=== PATIENT | female | born 1960 | race Caucasian/White ===

== ENCOUNTER 2021-06-05 15:22 | Emergency (ER) | payer OTHER, SELFPAY ==
[2021-06-05 15:38] VITALS: BP 126/72; PULSE 106; RESP 18; TEMP 37.8; O2SAT 97; BMI 25.6
--- NOTE | 2021-06-05 19:19 | ED_ITS ---
HPI - General Adult General Chief complaint: Abdominal Pain Stated complaint: headache, fever, body weakness Time Seen by Provider: 06/05/21 19:19 Source: patient Mode of arrival: ambulatory Limitations: language barrier (Hungarian speaking) History of Present Illness HPI narrative: 60-year-old female past medical history significant for anxiety, and asthma presents to the emergency department with body aches, fevers, abdominal pain, nausea, diarrhea, LAZCANO and weakness X2 days progressively worsening. She states that the body aches came on all the sudden yesterday. T max at home was 102. She states that she is having abdominal pain in all 4 quadrants, nothing makes it better or worse. She states she has felt nauseous for the past 2 days, however has not vomited. She reports 10 episodes of diarrhea per day, brown in color, free of blood. She also reports frontal headache that is bilateral in nature, with no changes in vision, she states it feels like a typical migraine, except a little stronger. Patient denies chest pain,SOB, cough, changes in urination, paresthesias, numbness, tingling, back pain, vomiting. She has been taking ibuprofen. Related Data Previous Rx's Medication Instructions Recorded famotidine 20 mg tablet 20 mg PO DAILY #10 tab 06/05/21 ondansetron 4 mg disintegrating 4 mg PO BEDTIME #7 tab 06/05/21 tablet Allergies Allergy/AdvReac Type Severity Reaction Status Date / Time No Known Allergies Allergy Verified 06/05/21 15:38 Review of Systems Review of Systems: Yes all other systems are reviewed and are negative PMFSH Past Medical History Attestation statement: The following information was validated with the patient. Source: old records reviewed and nursing notes reviewed Medical History Anxiety Asthma Social History Social History Alcohol intake: never Patient Tobacco Use Status: Never used Tobacco Use of substances other than those prescribed or required for medical reasons: No Advance Directives: No Advance Directives Information Provided: No Patient : No Physical Exam Vital Signs: Vital Signs: Last Vital Signs Temp 99.0 F 06/05/21 20:58 Pulse 87 06/05/21 20:58 Resp 18 10/19/21 20:58 BP 143/70 H 06/05/21 20:58 Pulse Ox 95 06/05/21 20:58 Body Mass Index 25.6 Const: General: cooperative and no acute distress Orientation/co nsciousness: oriented to person and oriented to place Limitations: no limitations HENMT: Head: Yes normal to inspection, Yes normocephalic and Yes atraumatic Ears: external ears normal General nose exam: Normal external nose present Face and sinus: Yes normal facial exam Mouth: Normal oral and palatal mucosa present Throat: Yes posterior oropharynx normal Eyes: General: appearance normal, both eyes and all related structures Pupils: Equal, round and reactive pupils present Neck: Neck: Yes normal visual inspection, Yes no lymphadenopathy, Yes trachea midline and Yes supple Chest: Chest palpation & inspection: normal inspection of the chest and normal palpation of entire chest wall Resp: Effort & Inspection: normal respiratory effort and able to speak in complete sentences Auscultation: clear to auscultation bilaterally Cardio: Rate: regular rate Rhythm: regular rhythm Heart sounds: S1 normal heart sound present, S2 normal heart sound present and no murmurs GI: Inspection: Yes normal to inspection Palpation (GI): Soft to palpation, nontender and no guarding Auscultation: normal bowel sounds : General: Yes no CVA tenderness Back/Spine/Pelvis: Back: no CVA tenderness Skin: General skin exam: no rashes or lesions noted Neuro: General: oriented to person and oriented to place Cranial nerves: Yes CN's II-XII intact bilaterally and Yes Equal, round and reactive pupils present Cognition (Neuro): normal cognition Motor exam (neuro): 5/5 motor strength present throughout Coordination: [id number] test normal, zrxx-cq-mapj test normal and tandem gait normal Extrem: General: Yes normal to inspection Psych: Appearance: grossly normal Speech and movement: Normal speech and movement present Affect: normal affect Attitude: cooperative Thought process: Normal thought process present Thought content: Normal thought content present Course Course Course Narrative: 1927 60-year-old female past medical history significant for anxiety, and asthma presents to the emergency department with body aches, fevers (oral T max 102.0F), generalized abdominal pain, nausea, diarrhea about 10 episodes of liquid brown stool, frontal LAZCANO described as tightness bilaterally and weakness X2 days progressively worsening. Denies recent antibiotic use, and travel. On physical examination lungs are clear. Abdomen soft nontender nondistended. Patient has 5/5 strength upper and lower extremities. Normal zxciwq-ur-hcoj, zgsq-by-kfyf, hand glass smoother. No meningeal signs, negative Babinski, negative Kernig. Patient is alert and oriented x3 Unlikely that this is meningitis. Reevaluation(s) Reevaluation #1: Upon re-evaluation, patient is feeling much better after taking Imitrex, Zofran and Pepcid. She is comfortably resting on the stretcher. Time: 20:43 Reevaluation #2: Upon re-evaluation, patient says that these medications really helped. She has not had any episodes of diarrhea while in the emergency department. Her abdominal pain has resolved. She is no longer nauseous. Her headache is significantly better at this time. She states that tomorrow she will call and try to follow-up with her primary care provider. She is safe for discharge home, with prompt PCP follow-up. She has been educated to return to the emergency department with new or worsening symptoms. Time: 21:44 Medical Decision Making MDM Narrative Medical decision making narrative: Based off of patient's history, physical exam basic labs will be ordered, UA, EKG, flu/COVID/RSV. She will be given Imitrex for headache, and fluids for hydration. Lab Data Result diagrams: 06/05/21 19:44 06/05/21 20:25 Labs: Lab Results 06/05/21 06/05/21 06/05/21 Range/Units 19:44 19:44 20:25 WBC 11.0 H (4.8-10.8) X10*3/uL RBC 4.84 (4.20-5.50) X10*6/uL Hgb 14.5 (12.0-16.0) g/dl Hct 41.9 (37-47) % MCV 86.6 (80-98) fL MCH 30.0 (27.0-33.0) pg MCHC 34.6 (31.0-35.0) g/dl RDW 12.1 (11.0-16.0) % Plt Count 296 (160-400) X10*3/uL MPV 9.2 L (9.4-12.3) fL Immature Gran % (Auto) 0.5 H (0.0-0.4) % Neut % (Auto) 83.0 H (45-73) % Lymph % (Auto) 11.4 L (20-40) % [facility] % (Auto) 4.9 (2-11) % Eos % (Auto) 0.0 (0-4) % Baso % (Auto) 0.2 (0-2) % Lymph # (Auto) 1.3 (1.2-4.9) X10*3/uL [facility] # (Auto) 0.5 (0.1-1.2) X10*3/uL Eos # (Auto) 0.0 (0.0-0.4) X10*3/uL Baso # (Auto) 0.0 (0.0-0.2) X10*3/uL Abs Immat Gran (auto) 0.05 H (0.00-0.03) X10*3/uL Absolute Neuts (auto) 9.1 H (2.0-8.3) X10*3/uL Absolute Nucleated RBC 0.000 (0.0-0.012) X10*3/uL Nucleated RBC % (auto) 0.0 (0.0-0.2) /100WBC Sodium 131 L (135-145) mmol/L Potassium 3.3 (3.3-5.1) mmol/L Chloride 102 (96-108) mmol/L Carbon Dioxide 18 L (22-29) mmol/L Anion Gap 14 (12-20) BUN 10 (9-16) mg/dL Creatinine 0.62 (0.5-1.4) mg/dL Estim Creat Clear Calc 84.4 Estimated GFR > 60 Random Glucose 117 H (60-115) mg/dL Calcium 7.8 L (8.4-10.2) mg/dL Total Bilirubin 0.5 (0.0-1.0) mg/dL AST 25 (5-31) U/L ALT 27 (0-31) U/L Alkaline Phosphatase 68 (39-117) U/L Total Protein 6.5 (6.5-8.0) g/dL Albumin 3.6 (3.5-5.0) g/dL Lipase 13 (8-78) U/L Urine Color Urine Appearance Urine pH (5.0-8.0) Ur Specific Pickerel (1.005-1.025) Urine Protein (NEG-TRACE) MG/DL Urine Glucose (UA) (NEG) MG/DL Urine Ketones (NEG) MG/DL Urine Blood (NEG) Urine Nitrite (NEG) Ur Leukocyte Esterase (NEG) Urine RBC (0) /HPF Urine WBC (0-4) /HPF Ur Squamous Epith Cells /LPF Urine Bacteria /LPF Urine Mucus /LPF Coronavirus (PCR) NEGATIVE (Negative) Influenza Type A (PCR) NEGATIVE (Negative) Influenza Type B (PCR) NEGATIVE (Negative) RSV RNA Qual (PCR) NEGATIVE (Negative) 06/05/21 Range/Units 21:20 WBC (4.8-10.8) X10*3/uL RBC (4.20-5.50) X10*6/uL Hgb (12.0-16.0) g/dl Hct (37-47) % MCV (80-98) fL MCH (27.0-33.0) pg MCHC (31.0-35.0) g/dl RDW (11.0-16.0) % Plt Count (160-400) X10*3/uL MPV (9.4-12.3) fL Immature Gran % (Auto) (0.0-0.4) % Neut % (Auto) (45-73) % Lymph % (Auto) (20-40) % [facility] % (Auto) (2-11) % Eos % (Auto) (0-4) % Baso % (Auto) (0-2) % Lymph # (Auto) (1.2-4.9) X10*3/uL [facility] # (Auto) (0.1-1.2) X10*3/uL Eos # (Auto) (0.0-0.4) X10*3/uL Baso # (Auto) (0.0-0.2) X10*3/uL Abs Immat Gran (auto) (0.00-0.03) X10*3/uL Absolute Neuts (auto) (2.0-8.3) X10*3/uL Absolute Nucleated RBC (0.0-0.012) X10*3/uL Nucleated RBC % (auto) (0.0-0.2) /100WBC Sodium (135-145) mmol/L Potassium (3.3-5.1) mmol/L Chloride (96-108) mmol/L Carbon Dioxide (22-29) mmol/L Anion Gap (12-20) BUN (9-16) mg/dL Creatinine (0.5-1.4) mg/dL Estim Creat Clear Calc Estimated GFR Random Glucose (60-115) mg/dL Calcium (8.4-10.2) mg/dL Total Bilirubin (0.0-1.0) mg/dL AST (5-31) U/L ALT (0-31) U/L Alkaline Phosphatase (39-117) U/L Total Protein (6.5-8.0) g/dL Albumin (3.5-5.0) g/dL Lipase (8-78) U/L Urine Color YELLOW Urine Appearance CLEAR Urine pH 6.0 (5.0-8.0) Ur Specific Pickerel <= 1.005 (1.005-1.025) Urine Protein NEG (NEG-TRACE) MG/DL Urine Glucose (UA) NEG (NEG) MG/DL Urine Ketones 5 (NEG) MG/DL Urine Blood 2+ H (NEG) Urine Nitrite POS H (NEG) Ur Leukocyte Esterase NEG (NEG) Urine RBC 5-9 H (0) /HPF Urine WBC 1-4 (0-4) /HPF Ur Squamous Epith Cells 1+ /LPF Urine Bacteria 3+ /LPF Urine Mucus 1+ /LPF Coronavirus (PCR) (Negative) Influenza Type A (PCR) (Negative) Influenza Type B (PCR) (Negative) RSV RNA Qual (PCR) (Negative) Discharge Plan Discharge Clinical Impression: Epigastric abdominal pain, Body aches, Fever, Diarrhea Patient Disposition: Home, Self-Care Instructions: Acute Diarrhea (ED), Abdominal Pain (ED), Epigastric Pain (ED) Additional Instructions: Drink plenty of fluids. You can take Tylenol or Motrin for fevers and body aches. Today you tested negative for COVID/flu/RSV. Follow-up with your primary care provider within 2 days. Return to the emergency department with new or worsening symptoms. Prescriptions: New ondansetron 4 mg tablet,disintegrating 4 mg PO BEDTIME Qty: 7 RF: 0 famotidine 20 mg tablet 20 mg PO DAILY Qty: 10 RF: 0 Stand Alone Forms: Work/School Release
--- NOTE | 2021-06-05 19:28 | ECG_ITS ---
Test Reason : ABDOMIANL PAIN Blood Pressure : / mmHG Vent. Rate : 081 BPM Atrial Rate : 081 BPM P-R Int : 170 ms QRS Dur : 074 ms QT Int : 386 ms P-R-T Axes : 039 -03 -24 degrees QTc Int : 448 ms Normal sinus rhythm Nonspecific T wave abnormality Abnormal ECG T wave amplitude has decreased in Inferior leads Lateral leads Referred By: Kj Hernandez Electronically Signed By:MATEO WEATHERS MD
[2021-06-05 19:57] LABS: MANUAL DIFF FLAG NO
--- NOTE | 2021-06-05 19:57 | PC.NURSE ---
Iv placed, labs drawn, medicated per Mar. Pt reports having a headache and abd discomfort. Provider aware and will continue to monitor.
[2021-06-05] MEDS: ondansetron HCL 4 MG/2 ML VIAL IVPUSH (19:59)
[2021-06-05 20:00] LABS: Basophils Percent Auto 0.2 % (0-2); Hematocrit 41.9 % (37-47); Hemoglobin 14.5 g/dl (12.0-16.0); Imm Gran Abs Auto 0.05 X10*3/uL (0.00-0.03); Imm Gran Pct Auto 0.5 % (0.0-0.4); Lymphocytes Absolute Auto 1.3 X10*3/uL (1.2-4.9); Lymphocytes Percent Auto 11.4 % (20-40); Mean Corpuscular HGB Conc 34.6 g/dl (31.0-35.0); Mean Corpuscular Volume 86.6 fL (80-98); Mean Platelet Volume 9.2 fL (9.4-12.3); Monocytes Absolute Auto 0.5 X10*3/uL (0.1-1.2); Monocytes Percent Auto 4.9 % (2-11); Neutrophils Absolute Auto 9.1 X10*3/uL (2.0-8.3); Platelet Count 296 X10*3/uL (160-400); Red Blood Count 4.84 X10*6/uL (4.20-5.50); Red Cell Distribution Width 12.1 % (11.0-16.0)
[2021-06-05] MEDS: 0.9 % Sodium Chloride 1,000 ML 999 ML IV (20:00)
[2021-06-05] MEDS: SUMAtriptan succinate 6 MG/0.5 ML VIAL SUBCUT (20:01)
[2021-06-05] MEDS: Famotidine 20 MG TABLET PO (20:01)
[2021-06-05] MEDS: Acetaminophen 325 MG TABLET 650 MG PO (20:03)
[2021-06-05 20:36] LABS: Influenza A PCR NEGATIVE (Negative); Influenza B PCR NEGATIVE (Negative); Resp Syncy Virus RNA Qual PCR NEGATIVE (Negative); SARS COV2 PCR INHOUSE NEGATIVE (Negative)
[2021-06-05 20:58] VITALS: BP 143/70; PULSE 87; RESP 18; TEMP 37.2; O2SAT 95
[2021-06-05 20:59] LABS: Alanine Aminotransferase 27 U/L (0-31); Albumin Level 3.6 g/dL (3.5-5.0); Alkaline Phosphatase 68 U/L (39-117); Anion Gap 14 (12-20); Aspartate Amino Transferase 25 U/L (5-31); Bilirubin Total 0.5 mg/dL (0.0-1.0); Blood Urea Nitrogen 10 mg/dL (9-16); Calcium 7.8 mg/dL (8.4-10.2); Carbon Dioxide 18 mmol/L (22-29); Chloride 102 mmol/L (96-108); Creatinine Clr Calc Pharmacy 84.4; Estimated Glomerular Filt Rate > 60; Glucose Random 117 mg/dL (60-115); Lipase 13 U/L (8-78); Potassium 3.3 mmol/L (3.3-5.1); Sodium 131 mmol/L (135-145); Total Protein 6.5 g/dL (6.5-8.0)
[2021-06-05 21:25] LABS: Appearance Urine CLEAR; Color Urine YELLOW; Glucose Urine UA NEG (NEG); Leukocyte Esterase Urine NEG (NEG); Nitrite Urine POS (NEG); Specific Gravity - Urine <= 1.005 (1.005-1.025); UACC Culture Trigger YES; Urine Blood 2+ (NEG); Urine Ketones 5 MG/DL (NEG); Urine Protein NEG (NEG-TRACE)
[2021-06-05 21:41] LABS: Bacteria Urine 3+ /LPF; Mucus Urine 1+ /LPF; Squamous Epithelial Cell Urine 1+ /LPF
== END 2021-06-05 22:03 | disposition home or self-care (01) ==
PROVIDERS: Emergency Provider Emergency Medicine Emergency Medical Services; PCP Internal Medicine
DX: R50.9 Fever, unspecified (principal); R10.13 Epigastric pain; R19.7 Diarrhea, unspecified; Z20.822 Contact with and (suspected) exposure to COVID-19
CPT/HCPCS: 0241U; 36415; 80053; 81001; 83690; 85025; 87086; 93005; 96361; 96372; 96374; 99285; J2405; J3030

== ENCOUNTER 2021-06-26 10:23 | Emergency (ER) | payer OTHER, SELFPAY ==
[2021-06-26 10:51] VITALS: BP 164/77; PULSE 75; RESP 18; TEMP 36.9; O2SAT 95; BMI 25.2
--- NOTE | 2021-06-26 11:08 | ED.WOUNDLAC ---
HPI - Wound/Laceration General Chief Complaint: Wound/Laceration Stated Complaint: rt hand laceration Time Seen by Provider: 06/26/21 11:07 History of Present Illness HPI narrative: Patient complains of left hand laceration after she cut it with a knife while preparing food no numbness weakness or tingling Related Data Previous Rx's Medication Instructions Recorded famotidine 20 mg tablet 20 mg PO DAILY #10 tab 06/05/21 ondansetron 4 mg disintegrating 4 mg PO BEDTIME #7 tab 06/05/21 tablet Allergies Allergy/AdvReac Type Severity Reaction Status Date / Time No Known Allergies Allergy Verified 06/05/21 15:38 Review of Systems Review of Systems: Positive for left hand laceration Negatives no numbness no weakness no tingling no joint pains no other injury Yes all other systems are reviewed and are negative PENDING SALE TO [facility] Past Medical History Source: nursing notes reviewed Medical History Anxiety Asthma Social History Social History Alcohol intake: never Patient Tobacco Use Status: Never used Tobacco Advance Directives: No Advance Directives Information Provided: No Patient : No Physical Exam Vital Signs: Vital Signs: Last Vital Signs Temp 98.5 F 06/26/21 10:51 Pulse 75 06/26/21 10:51 Resp 18 06/26/21 10:51 BP 164/77 H 06/26/21 10:51 Pulse Ox 95 06/26/21 10:51 Body Mass Index 25.2 General appearance no acute distress Head is normocephalic atraumatic Neck is supple Respiratory no distress Extremities full range of motion x4 Left hand in the thenar eminence is a 1.5 cm laceration, neurovascular intact distal no evidence of any tendon dysfunction Neuro no focal motor sensory deficits Course Course Course Narrative: 1.5 cm right hand laceration is cleansed and irrigated with normal saline Anesthesia is 4 cc of 1% lidocaine 250 nylon sutures were placed, bleeding controlled and dressing applied As it was a puncture wound from a knife she is given prophylactic antibiotic for 3 days as well as a tetanus shot Discharge Plan Discharge Clinical Impression: Laceration Patient Disposition: Home, Self-Care Additional Instructions: Two stitches were placed and need to be removed in 7 days at your doctor or return to the ER Return immediately any time for any sign of infection such as redness swelling pain discharge from the wound any worse condition or any concerns You got a tetanus shot today Prescriptions: No Action ondansetron 4 mg tablet,disintegrating 4 mg PO BEDTIME Qty: 7 RF: 0 famotidine 20 mg tablet 20 mg PO DAILY Qty: 10 RF: 0
[2021-06-26] MEDS: Lidocaine HCl 1 % MPF 5 ML VIAL SUBCUT (11:17)
[2021-06-26] MEDS: Diphth,Pertus(ACell),Tet Adult 0.5 ML SYRINGE IM (11:17)
[2021-06-26] MEDS: cephALEXin 500 MG CAPSULE PO (11:17)
== END 2021-06-26 12:22 | disposition home or self-care (01) ==
PROVIDERS: Emergency Provider Emergency Medicine; PCP Internal Medicine
DX: S61.412A Laceration without foreign body of left hand, initial encounter (principal); W26.0XXA Contact with knife, initial encounter; Y93.G1 Activity, food preparation and clean up; Y92.000 Kitchen of unspecified non-institutional (private) residence as the place of occurrence of the external cause; Y99.9 Unspecified external cause status
CPT/HCPCS: 12001; 90471; 90715; 99283; 99284

== ENCOUNTER 2021-07-03 13:24 | Emergency (ER) | payer OTHER, SELFPAY ==
--- NOTE | 2021-07-03 13:54 | ED.WOUNDLAC ---
HPI - Wound/Laceration General Stated Complaint: Suture Removal Time Seen by Provider: 07/03/21 13:54 Source: patient Mode of arrival: ambulatory Limitations: no limitations History of Present Illness HPI narrative: 60 y/o female presenting for suture removal. She had 2 sutures placed in her left palm on June 26 after she accidentally sustained a small cut while preparing food. She reports some ongoing discomfort but no signs of infection including no redness, warmth, discharge or pus. She has full range of motion of all of her fingers and has been using her hand normally. She has kept covered with a Band-Aid and is not submerged and any dirty water. Onset (ago): unknown Extremity Location: left: hand (Left thenar eminence) Place: home Patient tetanus UTD: Yes Context: accidental Associated symptoms: pain Treatments prior to arrival: bandage Related Data Previous Rx's Medication Instructions Recorded famotidine 20 mg tablet 20 mg PO DAILY #10 tab 06/05/21 ondansetron 4 mg disintegrating 4 mg PO BEDTIME #7 tab 06/05/21 tablet Allergies Allergy/AdvReac Type Severity Reaction Status Date / Time No Known Allergies Allergy Verified 06/05/21 15:38 Review of Systems Review of Systems: Constitutional: No Fever, No Chills Cardiovascular: No Chest Pain, No SOB Musculoskeletal: No joint pain, No Myalgias Skin: + Skin Lesions, No rash Neuro: No Weakness, No Numbness Heme/Lymph: No Bruising, No Lymphadenopathy PMFSH Past Medical History Attestation statement: The following information was validated with the patient. Medical History Anxiety Asthma Social History Social History Alcohol intake: never Patient Tobacco Use Status: Never used Tobacco Advance Directives: No Advance Directives Information Provided: Yes Physical Exam Vital Signs: Vital Signs: Patient left prior to vital sign being obtained. Appearance: Alert. Oriented X3. No acute distress. HEENT: normal inspection CVS: Normal heart rate and rhythm. Pulses normal. Respiratory: No respiratory distress. Skin: Skin warm and dry. Normal skin color. Normal skin turgor. No rashes. Extremities: Left hand with well-appearing wound to the thenar eminence, 1.5 cm laceration with [address] Mild surrounding erythema without warmth or drainage. Minimal tenderness. Neuro: Oriented X 3. No motor deficit. No sensory deficit. Course Course Course Narrative: 60-year-old female presenting to the ER for suture removal. She was in the waiting room for less than half an hour stating she was going to leave. She was brought back to the results pending room where her sutures were taken out. Her wound appears to be healing appropriately. She eloped from the treatment area prior to triage. Critical Care Time Critical Care Time Critical Care Time: No Discharge Plan Discharge Clinical Impression: Visit for suture removal Patient Disposition: Home, Self-Care Instructions: Stitches Removal (ED) Additional Instructions: Use bacitracin to the area 1-2 times per day. Follow-up with your doctor as needed. Prescriptions: No Action ondansetron 4 mg tablet,disintegrating 4 mg PO BEDTIME Qty: 7 RF: 0 famotidine 20 mg tablet 20 mg PO DAILY Qty: 10 RF: 0
--- NOTE | 2021-07-03 14:33 | PC.NURSE ---
Addendum entered by Norma Joseph 07/03/21 14:35: jesus raza in to remove sutures from hand, reports no s/sx infection, rn then entered room for triage pt had left Original Note: pt placed in chair in rp room 2, vs obtained 97.3 temporal, 16 rr, 98% RA O2Sat, hr 75 bp 163/75 rt arm
== END 2021-07-03 14:00 | disposition home or self-care (01) ==
PROVIDERS: Emergency Provider Emergency Medicine; PCP Internal Medicine
DX: Z48.02 Encounter for removal of sutures (principal); Z79.899 Other long term (current) drug therapy

== ENCOUNTER 2022-12-14 08:17 | Emergency (ER) | payer OTHER, SELFPAY ==
[2022-12-14 08:19] VITALS: BP 155/84; PULSE 69; RESP 18; TEMP 37.3; O2SAT 96; BMI 26.4
[2022-12-14 08:30] VITALS: BP 150/82; PULSE 73; RESP 18; TEMP 36.6; O2SAT 95
--- NOTE | 2022-12-14 08:34 | ED_ITS ---
HPI - Eye Problem General Chief complaint: Eye Problems Stated complaint: l eye pain Time Seen by Provider: 12/14/22 08:24 Source: patient Mode of arrival: ambulatory Limitations: no limitations History of Present Illness HPI Narrative: A 62-year-old female came in for evaluation of left eye pain started 2 days ago, pain is intermittent, only to the left eye with no radiation associated with slight blurry vision, no discharge, no headache, no nausea, no vomiting, no personal or family history of glaucoma or sudden loss of vision. Related Data Previous Rx's Medication Instructions Recorded famotidine 20 mg tablet 20 mg PO DAILY #10 tabs 06/05/21 ondansetron 4 mg disintegrating 4 mg PO BEDTIME #7 tabs 06/05/21 tablet erythromycin 5 mg/gram (0.5 %) eye 1 appl ophthalmic (eye) BID #3.5 12/14/22 ointment grams Allergies Allergy/AdvReac Type Severity Reaction Status Date / Time No Known Allergies Allergy Verified 06/05/21 15:38 Review of Systems Review of Systems: All other systems are reviewed and are negative Constitutional: Reports as per HPI and Reports no additional constitutional complaints Eyes: Reports as per HPI and Reports no additional eye complaints Reports system reviewed and no additional complaints, except as documented Cardiovascular: Reports as per HPI and Reports no additional cardiovascular complaints Respiratory: Reports as per HPI and Reports no additional respiratory complaints Gastrointestinal: Reports as per HPI and Reports no additional gastrointestinal complaints Genitourinary: Reports no additional female genitourinary complaints Musculoskeletal: Reports no additional musculoskeletal complaints Skin/Breast: Reports system reviewed and no additional complaints, except as docu Psychiatric: Reports no additional psychiatric complaints Endocrine: Reports no additional endocrine complaints Hematologic/Lymphatic: Reports no additional hematologic/lymphatic complaints Allergic/Immunologic: Reports no additional allergic/immunologic complaints Reports system reviewed and no additional complaints, except as documented and Reports Abnormal speech present [facility] Past Medical History Medical History Anxiety Asthma Social History Social History Alcohol intake: never Patient Tobacco Use Status: Never used Tobacco Physical Exam Vital Signs: Vital Signs: Last Vital Signs Temp 98 F 12/14/22 08:30 Pulse 73 12/14/22 08:30 Resp 18 12/14/22 08:30 BP 150/82 H 12/14/22 08:30 Pulse Ox 95 12/14/22 08:30 O2 Del Method Room Air 12/14/22 08:30 BMI result Body Mass Index 26.4 Vital signs have been reviewed as appeared to be correct. Blood pressure n ormal. Heart rate normal. Respiration rate normal. Temperature normal. Oxygen saturation normal. Appearance: Alert. Oriented X3. No acute distress. Head: Normal external exam. Normocephalic. Atraumatic. No Brizuela signs noted. No raccoon eyes noted Eyes: Eye exam was performed after applying 2 drops of tetracaine in with each eye VA 20/70 on the right, 20/70 on the left. Eyelid: Unremarkable bilaterally. Sclera: Mild injection, no discharge, no scleral uptake on the floor is seen. Cornea: No corneal abrasion, no imbedded foreign body, no corneal fluorescein uptake. Extraocular muscle: Intact non painful with movement. Retinal exam home: No hemorrhage. IOP: left 14, right 12. No temporal tenderness on percussion. ENT: TM's Normal. Pharynx normal. Uvula midline. Moist mucous membranes. No trismus noted. No drooling noted. No muffled voice noted. Neck: Normal inspection. Neck supple. FROM. No adenopathy. Thyroid Normal. No meningeal signs. No neck mass noted. CVS: Normal heart rate and rhythm. Heart sound normal. No murmurs noted. Pulses normal throughout. Respiratory: No respiratory distress. Painless inspiration. Breath sounds pedro l. No wheezes/rales/rhonchi noted. Chest nontender. No accessory muscle usage noted or decreased air movement noted. Abdomen: Soft and nontender. Bowel sounds normal in all 4 quadrants. No distention noted. No organomegaly noted. No visible injury noted. Back: No CVA tenderness. Full range of motion noted. Skin: Skin warm and dry. Normal skin color. Normal skin turgor. No rashes/lesions/lacerations noted. Extremities: No lower extremity edema. Extremities exhibit normal range of motion. Extremities nontender. Neuro: Oriented X 3. Cranial nerve exam: II-XII are grossly intact No motor deficit. No sensory deficit. Reflexes normal. Course Course Course Narrative: 62-year-old female came in for evaluation of left eye pain with exam revealing no glaucoma, no acute retinal detachment. Mild conjunctivitis on the left side will start the patient on erythromycin and follow-up with Ophthalmology. Patient has unremarkable inflammatory markers including WBCs, sed rate. Medications Administered Discontinued Medications Generic Name Dose Route Start Last Admin Trade Name Uliq PRN Reason Stop Dose Admin Tetracaine HCl 3 drop 12/14/22 08:33 12/14/22 08:37 Tetracaine Hcl/Pf 0.5% Oph Sravanthi 4 Ml Drops EYE-BOTH 12/14/22 08:34 3 drop ONCE ONE Administration Medical Decision Making Differential Diagnosis Differential Diagnoses: The differential diagnosis associated with the presentation includes ( conjunctivitis, glaucoma, foreign body, corneal abrasion.) Lab Data MDM Lab Attestation statement: I reviewed the patient's lab results. 12/14/22 08:48 Labs: Lab Results 12/14/22 Range/Units 08:48 WBC 7.0 (4.8-10.8) X10*3/uL RBC 4.85 (4.20-5.50) X10*6/uL Hgb 14.5 (12.0-16.0) g/dl Hct 43.9 (37.0-47.0) % MCV 90.5 (80.0-98.0) fL MCH 29.9 (27.0-33.0) pg MCHC 33.0 (31.0-35.0) g/dl RDW 12.2 (11.0-16.0) % Plt Count 364 (160-400) X10*3/uL MPV 9.2 L (9.4-12.3) fL Immature Gran % (Auto) 0.3 (0.0-0.4) % Neut % (Auto) 51.3 (45-73) % Lymph % (Auto) 38.5 (20-40) % Vance % (Auto) 7.5 (2-11) % Eos % (Auto) 1.7 (0-4) % Baso % (Auto) 0.7 (0-2) % Lymph # (Auto) 2.7 (1.2-4.9) X10*3/uL Vance # (Auto) 0.5 (0.1-1.2) X10*3/uL Eos # (Auto) 0.1 (0.0-0.4) X10*3/uL Baso # (Auto) 0.1 (0.0-0.2) X10*3/uL Abs Immat Gran (auto) 0.02 (0.00-0.03) X10*3/uL Absolute Neuts (auto) 3.6 (2.0-8.3) x10*3/uL Absolute Nucleated RBC 0.000 (0.0-0.012) X10*3/uL Nucleated RBC % (auto) 0.0 (0.0-0.2) /100WBC Discharge Plan Discharge Clinical Impression: Conjunctivitis Patient Disposition: Home, Self-Care Instructions: Conjunctivitis (ED) Additional Instructions: make an appointment with your marketing program manager for further evaluation. Prescriptions: New erythromycin 5 mg/gram (0.5 %) ointment 1 appl ophthalmic (eye) BID Qty: 3.5 0RF No Action ondansetron 4 mg tablet,disintegrating 4 mg PO BEDTIME Qty: 7 0RF famotidine 20 mg tablet 20 mg PO DAILY Qty: 10 0RF Referrals: Physician,Unknown J [Primary Care Provider] -
[2022-12-14] MEDS: Tetracaine HCl/PF 0.5% Oph Sol 4 ML DROPS 3 DROP EYE-BOTH (08:37)
[2022-12-14 08:54] LABS: Basophils Absolute Auto 0.1 X10*3/uL (0.0-0.2); Basophils Percent Auto 0.7 % (0-2); Eosinophils Absolute Auto 0.1 X10*3/uL (0.0-0.4); Eosinophils Percent Auto 1.7 % (0-4); Hematocrit 43.9 % (37.0-47.0); Hemoglobin 14.5 g/dl (12.0-16.0); Imm Gran Abs Auto 0.02 X10*3/uL (0.00-0.03); Imm Gran Pct Auto 0.3 % (0.0-0.4); Lymphocytes Absolute Auto 2.7 X10*3/uL (1.2-4.9); Lymphocytes Percent Auto 38.5 % (20-40); MANUAL DIFF FLAG NO; Mean Corpuscular Hemoglobin 29.9 pg (27.0-33.0); Mean Corpuscular Volume 90.5 fL (80.0-98.0); Mean Platelet Volume 9.2 fL (9.4-12.3); Monocytes Absolute Auto 0.5 X10*3/uL (0.1-1.2); Monocytes Percent Auto 7.5 % (2-11); Neutrophils Absolute Auto 3.6 x10*3/uL (2.0-8.3); Neutrophils Percent Auto 51.3 % (45-73); Platelet Count 364 X10*3/uL (160-400); Red Blood Count 4.85 X10*6/uL (4.20-5.50); Red Cell Distribution Width 12.2 % (11.0-16.0)
[2022-12-14 09:33] LABS: Erythrocyte Sedimentation Rate 7 MM/HR (0-20)
== END 2022-12-14 09:37 | disposition home or self-care (01) ==
PROVIDERS: Emergency Provider Emergency Medicine
DX: H10.9 Unspecified conjunctivitis (principal); H57.12 Ocular pain, left eye
CPT/HCPCS: 36415; 85025; 85652; 99283; 99284

== ENCOUNTER 2023-05-24 14:59 | Emergency (ER) | payer OTHER, SELFPAY ==
[2023-05-24 15:06] VITALS: BP 137/73; PULSE 82; RESP 18; TEMP 36.1; O2SAT 96; BMI 27.1
--- NOTE | 2023-05-24 15:06 | ED.HA ---
HPI - Headache General Chief Complaint: Eye Problems Stated Complaint: eye pain Time Seen by Provider: 05/24/23 15:35 Source: patient Mode of arrival: ambulatory Limitations: no limitations History of Present Illness HPI Narrative: 62-year-old female with a history of asthma, anemia presents the ER with complaints of bilateral eye redness for 1 month. Patient reports 2 weeks ago she had an upper respiratory infection which involved nasal congestion, sore throat and cough as well as headache. The symptoms seemed to resolve but her eye redness has continued. She is still having some mild congestion and some discomfort behind her eyes. She denies any blurry vision, eye discharge, eye irritation, eye pain. She does not use any corrective lenses. She is using an [id number] eyedrops for eye redness with continued symptoms. Related Data Previous Rx's Medication Instructions Recorded famotidine 20 mg tablet 20 mg PO DAILY #10 tabs 06/05/21 ondansetron 4 mg disintegrating 4 mg PO BEDTIME #7 tabs 06/05/21 tablet erythromycin 5 mg/gram (0.5 %) eye 1 appl ophthalmic (eye) BID #3.5 12/14/22 ointment grams fluticasone propionate 50 2 spray intranasal DAILY #16 grams 05/24/23 mcg/actuation nasal spray,suspension (Flonase Allergy Relief) loratadine 10 mg tablet (Claritin) 10 mg PO DAILY PRN allergic 05/24/23 symptoms #30 tabs olopatadine 0.2 % eye drops 1 drp ophthalmic (eye) DAILY PRN 05/24/23 (Pataday Once Daily Relief) itching #2.5 mL Allergies Allergy/AdvReac Type Severity Reaction Status Date / Time No Known Allergies Allergy Verified 05/24/23 15:05 Review of Systems Review of Systems: Yes all other systems are reviewed and are negative Constitutional: Constitutional: Reports no additional constitutional complaints, Denies body ache(s), Denies chills, Denies fever(s), Denies headache(s) and Denies weakness Eyes: Eyes: Reports no additional eye complaints, Denies change in vision, Denies eye discharge, Denies irritation, Denies eye pain and Denies photophobia ENT: Reports system reviewed and no additional complaints, except as documented, Denies dizziness, Denies headache(s), Denies nasal congestion, Denies nasal discharge and Denies neck pain Cardiovascular: Cardiovascular: Reports no additional cardiovascular complaints, Denies chest pain, Denies leg edema and Denies dyspnea Respiratory: Respiratory: Reports no additional respiratory complaints, Denies cough and Denies dyspnea Gastrointestinal: Gastrointestinal: Reports no additional gastrointestinal complaints, Denies abdominal pain, Denies diarrhea, Denies nausea and Denies vomiting Genitourinary: Genitourinary: Reports no additional female genitourinary complaints and Denies urinary incontinence Musculoskeletal: Musculoskeletal: Reports no additional musculoskeletal complaints, Denies back pain, Denies arthralgias, Denies joint swelling, Denies neck pain, Denies numbness and Denies tingling Integumentary/Breasts: Skin/Breast: Reports system reviewed and no additional complaints, except as docu and Denies rash Neurologic: Reports system reviewed and no additional complaints, except as documented, Denies Abnormal speech present, Denies dizziness, Denies headache(s), Denies numbness, Denies tingling and Denies weakness PMF Past Medical History Attestation statement: The following information was validated with the patient. Source: old records reviewed and nursing notes reviewed Medical History Anxiety Asthma Social History Social History Alcohol intake: never Patient Tobacco Use Status: Never used Tobacco Advance Directives: No Advance Directives Information Provided: No Physical Exam Vital Signs: Vital Signs: Last Vital Signs Temp 97.0 F 05/24/23 15:06 Pulse 82 05/24/23 15:06 Resp 18 05/24/23 15:06 BP 137/73 05/24/23 15:06 Pulse Ox 96 05/24/23 15:06 O2 Del Method Room Air 05/24/23 15:06 BMI result Body Mass Index 27.1 Const: General: cooperative, healthy appearing, comfortable and no acute distress Orientation/consciousness: patient oriented x3 Limitations: no limitations HEENT: Head: Yes normal to inspection Ears: hearing grossly normal bilaterally and TM's normal bilaterally General nose exam: Normal external nose present Face and sinus: Yes normal facial exam Mouth: Normal oral and palatal mucosa present Throat: Yes posterior oropharynx normal Eyes: General: appearance normal, both eyes and all related structures Visual Burnham: normal visual burnham by confrontation Alignment and Position: alignment normal Periorbital: periorbital findings normal Eyelids: Yes eyelids normal Conjunctivae: conjunctival abnormal bilateral conjunctival injection; without discharge Sclerae: sclerae normal Corneas: corneas normal Pupils: Equal, round and reactive pupils present EOM: EOMs intact bilaterally Direct Ophthalmoscopy: normal light reflex and No photophobia Neck: Neck: Yes normal visual inspection, Yes full ROM, Yes no lymphadenopathy and Yes no meningeal signs Chest: Chest palpation & inspection: normal inspection of the chest Resp: Effort & Inspection: normal respiratory effort Auscultation: clear to auscultation bilaterally Cardio: Rate: regular rate Rhythm: regular rhythm Peripheral pulses: Peripheral pulses 2+ throughout GI: Inspection: Yes normal to inspection Palpation (GI): Soft to palpation and nontender Auscultation: normal bowel sounds Back/Spine/Pelvis: Thoracic/Lumbar Spine: thoracic and lumbar spine normal to inspection Skin: General skin exam: no rashes or lesions noted Neuro: General: patient oriented x3, moves all extremities, no meningeal signs, no focal motor deficits and normal sensation to monofilament Cranial nerves: Yes Equal, round and reactive pupils present, Yes Bilaterally intact EOM present, Yes Nystagmus not present, Yes Normal facial strength present and Yes Midline tongue present Cognition (Neuro): normal cognition Speech: No Abnormal speech present Gait exam (Neuro): Normal gait present Motor exam (neuro): 5/5 motor strength present throughout Sensory Exam: Normal double simultaneous stimulation for sensation Extrem: General: Yes normal to inspection Course Course Course Narrative: RME - 62 y/o female presents to the ER for evaluation of bilateral eye redness x1 month and retro-orbital headache x2 days. Headache is 8/10 with some blurred vision. Has been also having some scratchy throat, runny nose as well, denies history of seasonal allergies. Mild conjunctival injection noted bilaterally. Plan: visual acuity testing, Medical Decision Making Medical Decision Making [facility] Narrative: 62-year-old female with a history of asthma, anemia presents the ER with complaints of bilateral eye redness for 1 month. Patient reports 2 weeks ago she had an upper respiratory infection which involved nasal congestion, sore throat and cough as well as headache. The symptoms seemed to resolve but her eye redness has continued. She is still having some mild congestion and some discomfort behind her eyes. She denies any blurry vision, eye discharge, eye irritation, eye pain. She does not use any corrective lenses. She is using an [id number] eyedrops for eye redness with continued symptoms. On exam the patient has mild bilateral conjunctival injection. Otherwise her eye exam is normal. Her visual acuity is normal. Her exam is benign. It sounds as the patient had a recent viral illness or may have had allergy symptoms. This may be either allergic or viral conjunctivitis. Low concern for bacterial conjunctivitis. Patient will be started on allergy eyedrops, oral allergy medication, nasal spray with recommendations for supportive care. Reviewed worrisome signs and symptoms of when to return to the emergency room. Comfortable with plan for discharge home. Differential Diagnosis Differential Diagnoses: The differential diagnosis associated with the presentation includes Conjunctivitis viral syndrome Prescription Management I considered prescription management with: Antibiotic Discharge Plan Discharge Clinical Impression: Acute allergic conjunctivitis Patient Disposition: Home, Self-Care Instructions: Conjunctivitis (ED) Prescriptions: New olopatadine [Pataday Once Daily Relief] 0.2 % drops 1 drp ophthalmic (eye) DAILY PRN (Reason: itching) Qty: 2.5 0RF fluticasone propionate [Flonase Allergy Relief] 50 mcg/actuation spray,suspension 2 spray intranasal DAILY Qty: 16 0RF Rx Instructions: administer into each nostril loratadine [Claritin] 10 mg tablet 10 mg PO DAILY PRN (Reason: allergic symptoms) Qty: 30 0RF No Action ondansetron 4 mg tablet,disintegrating 4 mg PO BEDTIME Qty: 7 0RF famotidine 20 mg tablet 20 mg PO DAILY Qty: 10 0RF erythromycin 5 mg/gram (0.5 %) ointment 1 appl ophthalmic (eye) BID Qty: 3.5 0RF Referrals: Physician,Unknown J [Primary Care Provider] - 1 week
--- NOTE | 2023-05-24 15:35 | PC.NURSE ---
pt reports having redness in her eyes x1 month. Has been using redness eye drops everyday with no relief
== END 2023-05-24 15:57 | disposition home or self-care (01) ==
PROVIDERS: Emergency Provider Emergency Medicine Emergency Medical Services
DX: H10.13 Acute atopic conjunctivitis, bilateral (principal)
CPT/HCPCS: 99282; 99283

== ENCOUNTER 2023-08-06 18:11 | Emergency (ER) | payer OTHER, SELFPAY ==
--- NOTE | ~2023-08-06 | XR_ITS ---
EXAMINATION: XR CHEST CLINICAL INFORMATION: Cough COMPARISON: Chest 10/31/2018 TECHNIQUE: Frontal view of the chest was obtained. FINDINGS: The lungs are well-expanded and clear. The heart size and pulmonary vascularity is normal. No gross bony abnormality seen. XR/XR chest 1V IMPRESSION: Unremarkable chest exam.
[2023-08-06 18:24] VITALS: BP 130/81; PULSE 108; RESP 20; TEMP 36.7; O2SAT 98; BMI 29.0
--- NOTE | 2023-08-06 18:27 | ED.GENADULT ---
[facility] - General Adult General Chief complaint: General Medical Stated complaint: headache, chest congestion, body ache, cough Time Seen by Provider: 08/06/23 19:11 Source: patient Mode of arrival: ambulatory History of Present Illness HPI narrative: 62-year-old female with history of cough, congestion, headache, sore throat, body aches since Friday. Related Data Previous Rx's Medication Instructions Recorded famotidine 20 mg tablet 20 mg PO DAILY #10 tabs 06/05/21 ondansetron 4 mg disintegrating 4 mg PO BEDTIME #7 tabs 06/05/21 tablet erythromycin 5 mg/gram (0.5 %) eye 1 appl ophthalmic (eye) BID #3.5 12/14/22 ointment grams fluticasone propionate 50 2 spray intranasal DAILY #16 grams 05/24/23 mcg/actuation nasal spray,suspension (Flonase Allergy Relief) loratadine 10 mg tablet (Claritin) 10 mg PO DAILY PRN allergic 05/24/23 symptoms #30 tabs olopatadine 0.2 % eye drops 1 drp ophthalmic (eye) DAILY PRN 05/24/23 (Pataday Once Daily Relief) itching #2.5 mL Allergies Allergy/AdvReac Type Severity Reaction Status Date / Time No Known Allergies Allergy Verified 05/24/23 15:05 Review of Systems Review of Systems: Written positives and negatives as stated in [facility] Past Medical History Source: nursing notes reviewed Medical History Anxiety Asthma Social History Social History Alcohol intake: never Patient Tobacco Use Status: Never used Tobacco Advance Directives: No Advance Directives Information Provided: No Physical Exam ED Vital Signs: Vital Signs - 24 hr 08/06/23 18:24 Temperature 98.1 F Pulse Rate 108 H Respiratory Rate 20 Blood Pressure 130/81 Pulse Oximetry 98 Oxygen Delivery Method Room Air BMI result Body Mass Index 29.0 VITAL SIGNS: Reviewed. GENERAL: Well developed, well nourished, in no acute distress. HEAD: Normocephalic/atraumatic EYES: PERRLA, EOMI EARS: Ext canals without abnormality, TMs non-bulging and non-erythematous NOSE: Nasal congestion OROPHARYNX: no oral lesions noted, posterior pharynx clear and non-erythematous without noted tonsillar enlargement/erythema/exudates NECK: Supple, no adenopathy LUNGS: Normal breath sounds, no tachypnea/wheeze/rhonchi/rales. SpO2<98> CARDIOVASCULAR: Regular rate and rhythm without noted murmurs ABDOMEN: Soft, non-tender, non-distended with bowel sounds. MUSCULOSKELETAL: No tenderness, deformities, or effusions noted on gross inspection. EXTREMITIES: No cyanosis, clubbing or edema. SKIN: Inspection of the skin reveals no rashes NEUROLOGIC: Alert and oriented x 4. Strength and sensation to light touch were grossly intact x 4. Course Course Course Narrative: RME: 62 yold female with pmh of Asthma and pneumonia presents to he ED for chest congestion, bodyaches, headache, fever, couhging and chills. Swabs and xray ordered Medications Administered Discontinued Medications Generic Name Dose Route Start Last Admin Trade Name Freq PRN Reason Stop Dose Admin Acetaminophen 975 mg 08/06/23 19:29 08/06/23 19:37 Acetaminophen 325 Mg Tablet PO 08/06/23 19:30 975 mg ONCE ONE Administration Benzonatate 100 mg 08/06/23 19:31 08/06/23 19:37 Benzonatate 100 Mg Capsule PO 08/06/23 19:32 100 mg ONCE ONE Administration Ibuprofen 400 mg 08/06/23 19:30 08/06/23 19:37 Ibuprofen 400 Mg Tablet PO 08/06/23 19:31 400 mg ONCE ONE Administration Medical Decision Making Medical Decision Making [facility] Narrative: 62-year-old female with history and clinical presentation most consistent with viral syndrome and will rule out influenza/COVID-19. I reviewed all investigations and viral testing is positive for COVID. Patient is outside the window for Paxilovid, she was offered combination analgesics and cough medication. Chest x-ray negative for infiltrate and otherwise my interpretation is in agreement radiology's impression. Differential Diagnosis Differential Diagnoses: The differential diagnosis associated with the presentation includes Please see the discussion above Admission/Observation Consideration of admission/observation: Escalation of care including admission/observation considered Please see the discussion above Lab Data [facility] Lab Attestation statement: I reviewed the patient's lab results. Please see the discussion above Labs: Lab Results 08/06/23 Range/Units 18:38 Influenza Type A (PCR) NEGATIVE (Negative) Influenza Type B (PCR) NEGATIVE (Negative) RSV RNA Qual (PCR) NEGATIVE (Negative) SARS-CoV-2 RNA (RT-PCR) POSITIVE A (Negative) S. pyogenes GrpA ALEXANDRA Negative (Negative) Radiology Impression Discussion of test interpretation with radiology: I have reviewed the radiologist's reading. Radiologist Impression: Please see the discussion above External Record Review External record reviewed: Outpatient record, Prior outpatient labs and Prior outpatient radiology Chronic Conditions Patient?s care impacted by: Other Asthma Critical Care Time Critical Care Time Critical Care Time: Yes Total Critical Care Time: 30 Attestation: I personally attest to this time spent taking care of the patient. Discharge Plan Discharge Clinical Impression: Viral syndrome, Lab test positive for detection of COVID-19 virus Patient Disposition: Home, Self-Care Instructions: Viral Syndrome (ED), COVID-19 (Coronavirus Disease 2019) (ED) Additional Instructions: 1. Tylenol 1000 mg, orally, every 6 hours as needed for body aches, headaches, temperatures greater than 100.4. 2. Ibuprofen 400 mg, orally with milk or food, every 6 hours as needed for body aches, headaches, temperatures greater than 100.4. 3. Continue drink plenty of water, get rest and isolate for the next 3 days. 4. Follow-up with your primary care doctor via telehealth medicine appointment in the next 1-2 days. Return to the ER for any worsening symptoms. Prescriptions: No Action ondansetron 4 mg tablet,disintegrating 4 mg PO BEDTIME Qty: 7 0RF famotidine 20 mg tablet 20 mg PO DAILY Qty: 10 0RF erythromycin 5 mg/gram (0.5 %) ointment 1 appl ophthalmic (eye) BID Qty: 3.5 0RF olopatadine [Pataday Once Daily Relief] 0.2 % drops 1 drp ophthalmic (eye) DAILY PRN (Reason: itching) Qty: 2.5 0RF fluticasone propionate [Flonase Allergy Relief] 50 mcg/actuation spray,suspension 2 spray intranasal DAILY Qty: 16 0RF Rx Instructions: administer into each nostril loratadine [Claritin] 10 mg tablet 10 mg PO DAILY PRN (Reason: allergic symptoms) Qty: 30 0RF Stand Alone Forms: Work/School Release Interventions: ED Discharge Assessment Last Done: 08/06/23 19:54 Discharge Date/Time: 08/06/23 19:54 Print Language: Latvian
[2023-08-06 18:58] LABS: IDNOW Serial# 6674DD1D; Strep A Nucleic Acid Negative (Negative)
[2023-08-06 19:25] LABS: Influenza A PCR NEGATIVE (Negative); Influenza B PCR NEGATIVE (Negative); Resp Syncy Virus RNA Qual PCR NEGATIVE (Negative); SARS COV2 PCR INHOUSE POSITIVE (Negative)
[2023-08-06] MEDS: Acetaminophen 325 MG TABLET 975 MG PO (19:37)
[2023-08-06] MEDS: Ibuprofen 400 MG TABLET PO (19:37)
[2023-08-06] MEDS: Benzonatate 100 MG CAPSULE PO (19:37)
== END 2023-08-06 19:54 | disposition home or self-care (01) ==
PROVIDERS: Physician Assistant; Emergency Provider Student in an Organized Health Care Education/Training Program
DX: U07.1 COVID-19 (principal); B34.9 Viral infection, unspecified; R51.9 Headache, unspecified; M79.10 Myalgia, unspecified site; R05.9 Cough, unspecified
CPT/HCPCS: 0241U; 71045; 87651; 99283

== ENCOUNTER 2023-08-27 10:34 | Emergency (ER) | payer OTHER, SELFPAY ==
--- NOTE | ~2023-08-27 | XR_ITS ---
EXAMINATION: XR CHEST CLINICAL INFORMATION: Cough COMPARISON: Chest radiograph 08/06/2023 CT PE study 07/08/2015 TECHNIQUE: 2 views of the chest were obtained. FINDINGS: The heart and pulmonary vessels appear normal. No infiltrates, effusions or lung masses are seen. There is some mild streaky densities seen in the right suprahilar region which had been present in the past and probably secondary to some scarring. XR/XR chest 2V IMPRESSION: No acute intrathoracic disease.
[2023-08-27 11:29] VITALS: BP 115/73; PULSE 90; RESP 18; TEMP 37.2; O2SAT 100; BMI 28.7
--- NOTE | 2023-08-27 11:29 | ED_ITS ---
HPI - Headache General Chief Complaint: Upper Respiratory Symptoms Stated Complaint: Headache, cough, pain in rib cage Time Seen by Provider: 08/27/23 13:52 Source: patient Mode of arrival: ambulatory Limitations: no limitations History of Present Illness HPI Narrative: cough for 3 weeks, now coughing with increased pain everywhere MD elicited complaint: headache Onset description: gradually Related Data Previous Rx's Medication Instructions Recorded famotidine 20 mg tablet 20 mg PO DAILY #10 tabs 06/05/21 ondansetron 4 mg disintegrating 4 mg PO BEDTIME #7 tabs 06/05/21 tablet erythromycin 5 mg/gram (0.5 %) eye 1 appl ophthalmic (eye) BID #3.5 12/14/22 ointment grams fluticasone propionate 50 2 spray intranasal DAILY #16 grams 05/24/23 mcg/actuation nasal spray,suspension (Flonase Allergy Relief) loratadine 10 mg tablet (Claritin) 10 mg PO DAILY PRN allergic 05/24/23 symptoms #30 tabs olopatadine 0.2 % eye drops 1 drp ophthalmic (eye) DAILY PRN 05/24/23 (Pataday Once Daily Relief) itching #2.5 mL albuterol sulfate 0.63 mg/3 mL 0.63 mg (3 mL) inhalation Q6H PRN 08/27/23 solution for nebulization shortness of breath or wheezing #90 mL prednisone 20 mg tablet 60 mg (3 x 20 mg) PO DAILY #15 tabs 08/27/23 Allergies Allergy/AdvReac Type Severity Reaction Status Date / Time No Known Allergies Allergy Verified 05/24/23 15:05 Review of Systems Review of Systems: Yes all other systems are reviewed and are negative Neurologic: Denies Sensory deficit (Neuro) PMFSH Past Medical History Onset Date is defined in the Problem List Problems that require an onset date and time if occurred within 24 hrs of arrival to the ED Aortic Dissection and Rupture; Neurologic impairment; Cardiopulmonary Arrest; Endotracheal Intubation; Insertion or Replacement of Mechanical Circulatory Assist Device Medical History Anxiety Asthma Social History Social History Alcohol intake: never Patient Tobacco Use Status: Never used Tobacco Physical Exam Vital Signs: Vital Signs: Last Vital Signs Temp 99.0 F 08/27/23 11:29 Pulse 90 08/27/23 11:29 Resp 18 08/27/23 11:29 BP 115/73 08/27/23 11:29 Pulse Ox 100 08/27/23 11:29 O2 Del Method Room Air 08/27/23 11:29 BMI result Body Mass Index 28.7 Const: Other: coughing and headache Nutritional Appearance: average body habitus Orientation/consciousness: oriented to person and patient oriented x3 Limitations: no limitations HEENT: Head: Yes normal to inspection Ears: external ears normal General nose exam: Normal external nose present Mouth: Normal oral and palatal mucosa present and oropharynx normal Throat: Yes posterior oropharynx normal Eyes: General: appearance normal, both eyes and all related structures Neck: Other: supple Neck: Yes normal visual inspection Chest: Chest palpation & inspection: normal inspection of the chest Resp: Other: slight wheezing diffusely Cardio: Jugular venous distension: no JVD Rate: regular rate Rhythm: re gular rhythm Heart sounds: S1 normal heart sound present and S2 normal heart sound present GI: Inspection: Yes normal to inspection Palpation (GI): Soft to palpation, nontender and No hepatosplenomegaly present Auscultation: normal bowel sounds : General: Yes no CVA tenderness Back/Spine/Pelvis: Back: no CVA tenderness Skin: General skin exam: no rashes or lesions noted Neuro: General: oriented to person and patient oriented x3 Cranial nerves: Yes CN's II-XII intact bilaterally Motor exam (neuro): 5/5 motor strength present throughout Sensory Exam: No Sensory deficit (Neuro) Extrem: General: Yes normal to inspection Psych: Appearance: grossly normal Course Course Course Narrative: RME: 62 yo F w/ PMHx asthma presenting to the ED c/o cough, rhinorrhea, chills, cough, rib pain from coughing, [place] x2 weeks. +COVID 3 weeks ago viral testing, CXR ordered Full HPI, ROS and PE to be performed by primary ED provider. Reevaluation(s) Reevaluation #1: xray negative will give albuterol for wheezing Time: 13:56 Medical Decision Making Differential Diagnosis Differential Diagnoses: The differential diagnosis associated with the presentation includes (pneumonia, asthma, influenza, covid, RSV were all considered) Admission/Observation Consideration of admission/observation: Escalation of care including admission/observation considered (upon arrival patient was considered for admission) Lab Data Labs: Lab Results 08/27/23 Range/Units 11:36 Influenza Type A (PCR) POSITIVE A (Negative) Influenza Type B (PCR) NEGATIVE (Negative) RSV RNA Qual (PCR) NEGATIVE (Negative) SARS-CoV-2 RNA (RT-PCR) NEGATIVE (Negative) Independent Interpretation I performed an independent interpretation of an: Plain X-Ray (CXR no infiltrate) External Record Review External record reviewed: Prior outpatient radiology Prescription Management I considered prescription management with: Antibiotic (patient with influenza no evidence of pneumonia) Chronic Conditions Patient?s care impacted by: Other (asthma) Discharge Plan Discharge Clinical Impression: Upper respiratory infection, Influenza, Asthma Patient Disposition: Home, Self-Care Instructions: Asthma (ED), Influenza (ED), Upper Respiratory Infection (ED) Prescriptions: New prednisone 20 mg tablet 60 mg PO DAILY Qty: 15 0RF albuterol sulfate 0.63 mg/3 mL solution for nebulization 0.63 mg inhalation Q6H PRN (Reason: shortness of breath or wheezing) Qty: 90 0RF No Action ondansetron 4 mg tablet,disintegrating 4 mg PO BEDTIME Qty: 7 0RF famotidine 20 mg tablet 20 mg PO DAILY Qty: 10 0RF erythromycin 5 mg/gram (0.5 %) ointment 1 appl ophthalmic (eye) BID Qty: 3.5 0RF olopatadine [Pataday Once Daily Relief] 0.2 % drops 1 drp ophthalmic (eye) DAILY PRN (Reason: itching) Qty: 2.5 0RF fluticasone propionate [Flonase Allergy Relief] 50 mcg/actuation spray,suspension 2 spray intranasal DAILY Qty: 16 0RF Rx Instructions: administer into each nostril loratadine [Claritin] 10 mg tablet 10 mg PO DAILY PRN (Reason: allergic symptoms) Qty: 30 0RF Referrals: Physician,Unknown J [Primary Care Provider] - 5 days
[2023-08-27 12:33] LABS: Influenza A PCR POSITIVE (Negative); Influenza B PCR NEGATIVE (Negative); Resp Syncy Virus RNA Qual PCR NEGATIVE (Negative); SARS COV2 PCR INHOUSE NEGATIVE (Negative)
== END 2023-08-27 14:25 | disposition home or self-care (01) ==
PROVIDERS: Physician Assistant; Emergency Provider Emergency Medicine
DX: J10.1 Influenza due to other identified influenza virus with other respiratory manifestations (principal); J06.9 Acute upper respiratory infection, unspecified; J45.909 Unspecified asthma, uncomplicated; R50.9 Fever, unspecified; Z11.52 Encounter for screening for COVID-19
CPT/HCPCS: 0241U; 71046; 99282; 99283

== ENCOUNTER 2024-07-06 19:13 | Emergency (ER) | payer OTHER, SELFPAY ==
--- NOTE | ~2024-07-06 | XR_ITS ---
EXAMINATION: XR CHEST 2 VIEWS CLINICAL INFORMATION: Shortness of breath. COMPARISON: Prior chest radiographs, most recently 08/27/2023. TECHNIQUE: Frontal and lateral views of the chest were obtained. FINDINGS: The heart, great vessels, pulmonary vasculature and mediastinum are normal. The lungs show no focal infiltrate, effusion or pneumothorax. There is no acute osseous abnormality. XR/XR chest 2V IMPRESSION: No active cardiopulmonary disease. Electronically signed by: Francisco Javier Vargas MD 07/06/2024 09:18 PM [facility]
[2024-07-06 19:46] VITALS: BP 152/76; PULSE 88; RESP 20; TEMP 36.7; O2SAT 97; BMI 28.7
--- NOTE | 2024-07-06 19:46 | ED_ITS ---
HPI - Asthma General Chief Complaint: Asthma Stated Complaint: asthma Time Seen by Provider: 07/06/24 23:11 Source: patient Mode of arrival: ambulatory Limitations: no limitations History of Present Illness ED Provider: leo GARRIDO Narrative: Patient's history of asthma been complaining of increased shortness of breath since yesterday with nasal congestion and soreness in the throat with loss of voice no fever no chills no sick contacts Related Data Previous Rx's ?Medication ?Instructions ?Recorded famotidine 20 mg tablet 20 mg PO DAILY #10 tabs 06/05/21 ondansetron 4 mg disintegrating 4 mg PO BEDTIME #7 tabs 06/05/21 tablet erythromycin 5 mg/gram (0.5 %) eye 1 appl ophthalmic (eye) BID #3.5 12/14/22 ointment grams fluticasone propionate 50 2 spray intranasal DAILY #16 grams 05/24/23 mcg/actuation nasal spray,suspension (Flonase Allergy Relief) loratadine 10 mg tablet (Claritin) 10 mg PO DAILY PRN allergic 05/24/23 symptoms #30 tabs olopatadine 0.2 % eye drops 1 drp ophthalmic (eye) DAILY PRN 05/24/23 (Pataday Once Daily Relief) itching #2.5 mL albuterol sulfate 0.63 mg/3 mL 0.63 mg (3 mL) inhalation Q6H PRN 08/27/23 solution for nebulization shortness of breath or wheezing #90 mL prednisone 20 mg tablet 60 mg (3 x 20 mg) PO DAILY #15 tabs 08/27/23 albuterol sulfate 2.5 mg/3 mL 2.5 mg (3 mL) inhalation Q4-6H PRN 08/29/23 (0.083 %) solution for nebulization shortness of breath or wheezing #90 mL benzonatate 200 mg capsule 200 mg PO TID PRN cough #20 caps 07/07/24 prednisone 20 mg tablet 40 mg (2 x 20 mg) PO DAILY #10 tabs 07/07/24 Allergies Allergy/AdvReac Type Severity Reaction Status Date / Time No Known Allergies Allergy Verified 07/06/24 19:49 Review of Systems 2 Review of Systems: Yes all other systems are reviewed and are negative PMFSH Past Medical History Medical History Anxiety Asthma Social History Social History Alcohol intake: never Patient Tobacco Use Status: Never used Tobacco Advance Directives: No Advance Directives Information Provided: Yes Physical Exam 2 Vital Signs: Vital Signs: Last Vital Signs Temp 98.3 F 07/07/24 00:26 Pulse 87 07/07/24 00:26 Resp 18 07/07/24 00:26 BP 144/80 H 07/07/24 00:26 Pulse Ox 99 07/07/24 00:26 O2 Del Method Room Air 07/07/24 00:26 BMI result Body Mass Index 28.7 Appearance: Alert. Oriented X3. No acute distress. ENT: Pharynx normal. Oral Mucosa moist Neck: Normal inspection. Neck supple. CVS: Normal heart rate and rhythm. Pulses normal. Respiratory: No respiratory distress. Equal air entry bilateral, bilateral wheezing and prolonged expiration no crackles Skin: Skin warm and dry. Normal skin color. Normal skin turgor. Extremities: No lower extremity edema. Neuro: Oriented X 3. Course Course Course Narrative: This is a Rapid Medical Examination (RME) performed by Jus Puga PA-C in triage. Full HPI, ROS, assessment and treatment plan per primary provider in the Main ED. 63 yo female with history of asthma who presents to the ER for evaluation of SOB, chest tightness, laryngitis that started yesterday. no fevers. reporting 8/10 chest pain. has been using her albuterol inhaler at home often without relief. in triage patient has stable VS. hoarse voice. lung sounds with coarseness, scattered rhonchi, end exp wheeze in the right lung, bronchospastic cough. RRR. Plan: CXR, EKG, viral swabs, labs Medications Administered Discontinued Medications Generic Name Dose Route Start Last Admin Trade Name Freq PRN Reason Stop Dose Admin Benzonatate 200 mg 07/06/24 23:26 07/07/24 00:19 Benzonatate 100 Mg Capsule PO 07/06/24 23:27 200 mg ONCE ONE Administration Albuterol Sulfate 2.5 mg/ 0 mg 07/06/24 23:26 07/06/24 23:48 Albuterol/Ipratropium 3 ml INHALE 07/06/24 23:27 3.5 dose ONCE ONE Administration Dexamethasone 10 mg 07/06/24 23:26 07/07/24 00:19 Dexamethasone 2 Mg Tablet PO 07/06/24 23:27 10 mg ONCE ONE Administration Medical Decision Making Medical Decision Making [facility] Narrative: Patient's asthmatic bronchitis will give steroids cough drops Lab Data [facility] Lab Attestation statement: I reviewed the patient's lab results. 07/06/24 20:04 07/06/24 20:04 Labs: Lab Results 07/06/24 Range/Units 20:04 WBC 8.4 (4.8-10.8) X10*3/uL RBC 4.37 (4.20-5.50) X10*6/uL Hgb 13.2 (12.0-16.0) g/dl Hct 39.1 (37.0-47.0) % MCV 89.5 (80.0-98.0) fL MCH 30.2 (27.0-33.0) pg MCHC 33.8 (31.0-35.0) g/dl RDW 12.6 (11.0-16.0) % Plt Count 360 (160-400) X10*3/uL MPV 9.2 L (9.4-12.3) fL Immature Gran % (Auto) 0.2 (0.0-0.4) % Neut % (Auto) 54.6 (45-73) % Lymph % (Auto) 35.0 (20-40) % [place] % (Auto) 8.5 (2-11) % Eos % (Auto) 1.3 (0-4) % Baso % (Auto) 0.4 (0-2) % Lymph # (Auto) 2.9 (1.2-4.9) X10*3/uL [place] # (Auto) 0.7 (0.1-1.2) X10*3/uL Eos # (Auto) 0.1 (0.0-0.4) X10*3/uL Baso # (Auto) 0.0 (0.0-0.2) X10*3/uL Abs Immat Gran (auto) 0.02 (0.00-0.03) X10*3/uL Absolute Neuts (auto) 4.6 (2.0-8.3) x10*3/uL Absolute Nucleated RBC 0.000 (0.0-0.012) X10*3/uL Nucleated RBC % (auto) 0.0 (0.0-0.2) /100WBC Sodium 144 (135-145) mmol/L Potassium 3.2 L (3.3-5.1) mmol/L Chloride 111 H (96-108) mmol/L Carbon Dioxide 26 (22-29) mmol/L Anion Gap 10 L (12-20) BUN 8 L (9-16) mg/dL Creatinine 0.71 (0.5-1.4) mg/dL Estim Creat Clear Calc 69.0 Estimated GFR > 60 Random Glucose 120 H (60-115) mg/dL Calcium 8.8 D (8.4-10.2) mg/dL Magnesium 1.8 (1.6-2.6) mg/dL Total Bilirubin 0.2 (0.0-1.0) mg/dL Direct Bilirubin < 0.2 (0.0-0.5) mg/dL AST 33 H (5-31) U/L ALT 36 H (0-31) U/L Alkaline Phosphatase 73 (39-117) U/L Troponin I High Sens < 2.7 (<3.5-17.0) ng/L Total Protein 7.0 (6.5-8.0) g/dL Albumin 3.9 (3.5-5.0) g/dL Influenza Type A (PCR) NEGATIVE (Negative) Influenza Type B (PCR) NEGATIVE (Negative) RSV RNA Qual (PCR) NEGATIVE (Negative) SARS-CoV-2 RNA (RT-PCR) NEGATIVE (Negative) S. pyogenes GrpA ALEXANDRA Negative (Negative) Radiology Impression Discussion of test interpretation with radiology: I have reviewed the radiologist's reading. Radiologist Impression: nad Discharge Plan Discharge Clinical Impression: Asthma with acute exacerbation Patient Disposition: Home, Self-Care Instructions: Asthma (ED) Additional Instructions: Continue inhaler and nebulizing treatment at home as advised Prednisone as prescribed Cough drops as prescribed Prescriptions: New benzonatate 200 mg capsule 200 mg PO TID PRN (Reason: cough) Qty: 20 0RF prednisone 20 mg tablet 40 mg PO DAILY Qty: 10 0RF No Action ondansetron 4 mg tablet,disintegrating 4 mg PO BEDTIME Qty: 7 0RF famotidine 20 mg tablet 20 mg PO DAILY Qty: 10 0RF erythromycin 5 mg/gram (0.5 %) ointment 1 appl ophthalmic (eye) BID Qty: 3.5 0RF olopatadine [Pataday Once Daily Relief] 0.2 % drops 1 drp ophthalmic (eye) DAILY PRN (Reason: itching) Qty: 2.5 0RF fluticasone propionate [Flonase Allergy Relief] 50 mcg/actuation spray,suspension 2 spray intranasal DAILY Qty: 16 0RF Rx Instructions: administer into each nostril loratadine [Claritin] 10 mg tablet 10 mg PO DAILY PRN (Reason: allergic symptoms) Qty: 30 0RF prednisone 20 mg tablet 60 mg PO DAILY Qty: 15 0RF albuterol sulfate 0.63 mg/3 mL solution for nebulization 0.63 mg inhalation Q6H PRN (Reason: shortness of breath or wheezing) Qty: 90 0RF albuterol sulfate 2.5 mg /3 mL (0.083 %) solution for nebulization 2.5 mg inhalation Q4-6H PRN (Reason: shortness of breath or wheezing) Qty: 90 0RF Interventions: ED Discharge Assessment Last Done: 07/07/24 00:26 Discharge Date/Time: 07/07/24 00:26 Print Language: Japanese
--- NOTE | 2024-07-06 19:48 | ECG_ITS ---
Test Reason : SOB Blood Pressure : / mmHG Vent. Rate : 085 BPM Atrial Rate : 085 BPM P-R Int : 158 ms QRS Dur : 076 ms QT Int : 362 ms P-R-T Axes : 035 004 -09 degrees QTc Int : 430 ms Normal sinus rhythm Nonspecific ST abnormality Abnormal ECG When compared with ECG of 05-JUN-2021 21:26, Nonspecific T wave abnormality no longer evident in Lateral leads Referred By: Vianney Puga Electronically Signed By:SYMONE TORREZ MD
[2024-07-06 20:10] LABS: MANUAL DIFF FLAG NO
[2024-07-06 20:14] LABS: Basophils Percent Auto 0.4 % (0-2); Eosinophils Absolute Auto 0.1 X10*3/uL (0.0-0.4); Eosinophils Percent Auto 1.3 % (0-4); Hematocrit 39.1 % (37.0-47.0); Hemoglobin 13.2 g/dl (12.0-16.0); Imm Gran Abs Auto 0.02 X10*3/uL (0.00-0.03); Imm Gran Pct Auto 0.2 % (0.0-0.4); Lymphocytes Absolute Auto 2.9 X10*3/uL (1.2-4.9); Mean Corpuscular HGB Conc 33.8 g/dl (31.0-35.0); Mean Corpuscular Hemoglobin 30.2 pg (27.0-33.0); Mean Corpuscular Volume 89.5 fL (80.0-98.0); Mean Platelet Volume 9.2 fL (9.4-12.3); Monocytes Absolute Auto 0.7 X10*3/uL (0.1-1.2); Monocytes Percent Auto 8.5 % (2-11); Neutrophils Absolute Auto 4.6 x10*3/uL (2.0-8.3); Neutrophils Percent Auto 54.6 % (45-73); Platelet Count 360 X10*3/uL (160-400); Red Blood Count 4.37 X10*6/uL (4.20-5.50); Red Cell Distribution Width 12.6 % (11.0-16.0); White Blood Count 8.4 X10*3/uL (4.8-10.8)
[2024-07-06 20:23] LABS: IDNOW Serial# 08D9AD1C; Strep A Nucleic Acid Negative (Negative)
[2024-07-06 20:31] LABS: Alanine Aminotransferase 36 U/L (0-31); Albumin Level 3.9 g/dL (3.5-5.0); Alkaline Phosphatase 73 U/L (39-117); Anion Gap 10 (12-20); Aspartate Amino Transferase 33 U/L (5-31); Bilirubin Direct < 0.2 mg/dL (0.0-0.5); Bilirubin Total 0.2 mg/dL (0.0-1.0); Blood Urea Nitrogen 8 mg/dL (9-16); Calcium 8.8 mg/dL (8.4-10.2); Carbon Dioxide 26 mmol/L (22-29); Chloride 111 mmol/L (96-108); Estimated Glomerular Filt Rate > 60; Glucose Random 120 mg/dL (60-115); Magnesium 1.8 mg/dL (1.6-2.6); Potassium 3.2 mmol/L (3.3-5.1); Sodium 144 mmol/L (135-145)
[2024-07-06 20:38] LABS: Troponin-I High Sensitivity < 2.7 ng/L (<3.5-17.0)
[2024-07-06 20:50] LABS: Influenza A PCR NEGATIVE (Negative); Influenza B PCR NEGATIVE (Negative); Resp Syncy Virus RNA Qual PCR NEGATIVE (Negative); SARS COV2 PCR INHOUSE NEGATIVE (Negative)
[2024-07-06 22:37] VITALS: BP 126/74; PULSE 74; RESP 18; TEMP 36.9; O2SAT 96
[2024-07-06] MEDS: Albuterol Sulfate 2.5 MG, Albuterol/Iprat 2.5/0.5MG 3 ML 3 ML INHALE (23:48)
[2024-07-06 23:49] VITALS: PULSE 57; RESP 18; O2SAT 98
[2024-07-07] MEDS: dexAMETHasone 2 MG TABLET 10 MG PO (00:19)
[2024-07-07] MEDS: Benzonatate 100 MG CAPSULE 200 MG PO (00:19)
[2024-07-07 00:24] VITALS: BP 144/80; PULSE 87; RESP 18; TEMP 36.8; O2SAT 99
[2024-07-07 00:26] VITALS: BP 144/80; PULSE 87; RESP 18; TEMP 36.8; O2SAT 99
== END 2024-07-07 00:26 | disposition home or self-care (01) ==
PROVIDERS: Physician Assistant; Emergency Provider Internal Medicine
DX: J45.901 Unspecified asthma with (acute) exacerbation (principal); J02.9 Acute pharyngitis, unspecified; Z03.818 Encounter for observation for suspected exposure to other biological agents ruled out
CPT/HCPCS: 0241U; 36415; 71046; 80048; 80076; 83735; 84484; 85025; 87651; 93005; 94640; 99284; J8540

== ENCOUNTER → 2024-07-06 19:48 | Outpatient (BNV) | payer OTHER, SELFPAY | PROVIDERS: Emergency Provider Internal Medicine; Visit Provider Internal Medicine Cardiovascular Disease | DX: R06.02 Shortness of breath (principal); R94.31 Abnormal electrocardiogram [ECG] [EKG] | CPT/HCPCS: 93010 ==

== ENCOUNTER 2024-12-03 07:05 | Emergency (ER) | payer OTHER, SELFPAY ==
--- NOTE | ~2024-12-03 | CT_ITS ---
EXAMINATION: CT CHEST WITH CONTRAST CLINICAL INFORMATION: Rule out pneumonia versus malignancy. COMPARISON: [facility] chest 07/08/2015. Chest x-ray 12/03/2024. TECHNIQUE: Multidetector volumetric CT imaging of the chest was obtained after the administration of 50 mL of Omnipaque 350 intravenous contrast without immediate adverse reactions. Axial MIP volume rendering provided. Sagittal and coronal reformatted images were obtained. This CT examination was performed using dose optimization techniques as appropriate, variously including the following: *Automated exposure control *Adjustment of mA and/or kV according to patient size (this includes techniques or standardized protocols for targeted exams where dose is matched to indication/reason for exam; i.e. extremities or head) *Use of iterative reconstruction technique FINDINGS: LUNGS: Patchy peribronchial parenchymal opacities in the peripheral right upper lobe, right middle lobe, and to a lesser degree lateral right lower lobe. There are superimposed patchy mosaic attenuation groundglass opacities throughout both lungs. Minimal patchy nodular consolidative opacities in the left upper lobe, lingula, and peripheral left lower lobe. Findings are in keeping with multifocal pneumonia. Mild thickening of the small airways is noted. No pleural effusion or pneumothorax. Calcified granuloma in the left pleural left lower lobe measuring 7 mm in diameter. Central airways are patent. No evidence of interstitial lung disease. MEDIASTINUM: Normal thyroid. No abnormal mediastinal lymphadenopathy or mass. Minimal calcific atheromatous disease of the aorta. Aorta otherwise normal. Main pulmonary artery is normal in size. Heart size is normal. There is no pericardial effusion. Small type I hiatus hernia. Esophagus is otherwise normal. AXILLA: No lymphadenopathy. UPPER ABDOMEN: Diffuse fatty infiltration of the liver. There are numerous splenic calcified granulomata present. Spleen otherwise normal. OSSEOUS STRUCTURES: No suspicious lytic or blastic bone lesions. CT/CT chest w IV con IMPRESSION: 1. Patchy multifocal bronchopneumonia, most confluent right upper lobe. 2. No effusions. 3. Evidence of prior granulomatous disease. 4. Small type I hiatus hernia. Electronically signed by: Jaime Serna MD 12/03/2024 01:42 PM EDT
--- NOTE | ~2024-12-03 | XR_ITS ---
EXAMINATION: XR CHEST CLINICAL INFORMATION: cough x1 week COMPARISON: July 06, 2024. TECHNIQUE: 2 views of the chest were obtained. FINDINGS: There is a less than 2 cm patchy opacity in the periphery of the right hemithorax. Pulmonary reticular pattern. No pleural effusion. No pneumothorax. Cardiomediastinal silhouette size is normal. Multilevel mild thoracic spondylosis. Degenerative changes in the acromioclavicular joints. XR/XR chest 2V IMPRESSION: Acute on chronic airspace disease. Neoplasm/malignancy in the right lung cannot be excluded. Recommend further imaging evaluation with CT chest. Electronically signed by: Adan Guerra MD 12/03/2024 07:45 AM EDT
[2024-12-03 07:08] VITALS: BP 129/67; PULSE 83; RESP 18; TEMP 36; O2SAT 96; BMI 28.5
[2024-12-03 07:32] LABS: IDNOW Serial# 58CA691E; Strep A Nucleic Acid Negative (Negative)
[2024-12-03 08:21] LABS: Influenza A PCR NEGATIVE (Negative); Influenza B PCR NEGATIVE (Negative); Resp Syncy Virus RNA Qual PCR NEGATIVE (Negative); SARS COV2 PCR INHOUSE NEGATIVE (Negative)
--- NOTE | 2024-12-03 09:29 | ECG_ITS ---
Test Reason : cp/cough Blood Pressure : */* mmHG Vent. Rate : 74 BPM Atrial Rate : 74 BPM P-R Int : 166 ms QRS Dur : 72 ms QT Int : 372 ms P-R-T Axes : 40 4 -11 degrees QTcB Int : 412 ms Normal sinus rhythm Normal ECG When compared with ECG of 06-Jul-2024 19:52, No significant change was found Referred By: Valerie Joshi Electronically Signed By: SYMONE TORREZ MD
[2024-12-03 09:45] VITALS: PULSE 83; RESP 18; O2SAT 96
[2024-12-03] MEDS: Albuterol Sulfate 2.5 MG, Albuterol/Iprat 2.5/0.5MG 3 ML 3 ML INHALE (09:45)
[2024-12-03] MEDS: methylPREDNISolone Sod Succ 125 MG/2 ML VIAL 60 MG IVPUSH (09:49)
[2024-12-03 09:51] LABS: Basophils Absolute Auto 0.1 X10*3/uL (0.0-0.2); Basophils Percent Auto 0.6 % (0-2); Eosinophils Absolute Auto 0.1 X10*3/uL (0.0-0.4); Eosinophils Percent Auto 0.6 % (0-4); Hematocrit 42.3 % (37.0-47.0); Imm Gran Abs Auto 0.04 X10*3/uL (0.00-0.03); Imm Gran Pct Auto 0.4 % (0.0-0.4); Lymphocytes Absolute Auto 2.9 X10*3/uL (1.2-4.9); Lymphocytes Percent Auto 26.9 % (20-40); MANUAL DIFF FLAG NO; Mean Corpuscular HGB Conc 33.1 g/dl (31.0-35.0); Mean Corpuscular Volume 90.6 fL (80.0-98.0); Mean Platelet Volume 8.9 fL (9.4-12.3); Monocytes Percent Auto 9.2 % (2-11); Neutrophils Absolute Auto 6.8 x10*3/uL (2.0-8.3); Neutrophils Percent Auto 62.3 % (45-73); Platelet Count 382 X10*3/uL (160-400); Red Blood Count 4.67 X10*6/uL (4.20-5.50); Red Cell Distribution Width 12.3 % (11.0-16.0); White Blood Count 10.8 X10*3/uL (4.8-10.8)
--- NOTE | 2024-12-03 10:05 | ED_ITS ---
HPI - URI/Sore Throat General Chief Complaint: Upper Respiratory Symptoms Stated Complaint: cough Time Seen by Provider: 12/03/24 08:54 Source: patient, RN notes reviewed and old records reviewed Mode of arrival: ambulatory History of Present Illness ED Provider: Valerie Joshi PA-C HPI Narrative: 64-year-old female with a past medical history of anxiety, asthma, presenting to the ED complaining of productive cough, sore throat, SOB, and chest tightness x few days. Denies fever, chills, abdominal pain, pedal edema, recent travel, sick contacts. States last course of prednisone was last month Related Data Previous Rx's ?Medication ?Instructions ?Recorded famotidine 20 mg tablet 20 mg PO DAILY #10 tabs 06/05/21 ondansetron 4 mg disintegrating 4 mg PO BEDTIME #7 tabs 06/05/21 tablet erythromycin 5 mg/gram (0.5 %) eye 1 appl ophthalmic (eye) BID #3.5 12/14/22 ointment grams fluticasone propionate 50 2 spray intranasal DAILY #16 grams 05/24/23 mcg/actuation nasal spray,suspension (Flonase Allergy Relief) loratadine 10 mg tablet (Claritin) 10 mg PO DAILY PRN allergic 05/24/23 symptoms #30 tabs olopatadine 0.2 % eye drops 1 drp ophthalmic (eye) DAILY PRN 05/24/23 (Pataday Once Daily Relief) itching #2.5 mL albuterol sulfate 0.63 mg/3 mL 0.63 mg (3 mL) inhalation Q6H PRN 08/27/23 solution for nebulization shortness of breath or wheezing #90 mL prednisone 20 mg tablet 60 mg (3 x 20 mg) PO DAILY #15 tabs 08/27/23 albuterol sulfate 2.5 mg/3 mL 2.5 mg (3 mL) inhalation Q4-6H PRN 08/29/23 (0.083 %) solution for nebulization shortness of breath or wheezing #90 mL benzonatate 200 mg capsule 200 mg PO TID PRN cough #20 caps 07/07/24 prednisone 20 mg tablet 40 mg (2 x 20 mg) PO DAILY #10 tabs 07/07/24 amoxicillin 875 mg-potassium 1 tab PO BID 7 days #14 tabs 12/03/24 clavulanate 125 mg tablet azithromycin 250 mg tablet See Rx Instructions PO .COMPLEX #6 12/03/24 tabs benzonatate 100 mg capsule 100 mg PO TID PRN cough #14 caps 12/03/24 prednisone 20 mg tablet 40 mg (2 x 20 mg) PO DAILY 5 days 12/03/24 #10 tabs Allergies Allergy/AdvReac Type Severity Reaction Status Date / Time No Known Allergies Allergy Verified 12/03/24 07:14 Review of Systems 2 Review of Systems: Yes all other systems are reviewed and are negative Constitutional: Constitutional: Reports as per [facility] Past Medical History Attestation statement: The following information was validated with the patient. Source: old records reviewed Medical History Anxiety Asthma Social History Social History Alcohol intake: never Patient Tobacco Use Status: Never used Tobacco Advance Directives: No Advance Directives Information Provided: No Physical Exam 2 Vital Signs: Vital Signs: Last Vital Signs Temp 98.3 F 12/03/24 12:46 Pulse 71 12/03/24 12:46 Resp 18 12/03/24 12:46 BP 135/76 12/03/24 12:46 Pulse Ox 95 12/03/24 12:46 O2 Del Method Room Air 12/03/24 12:46 BMI result Body Mass Index 28.5 Const: General: cooperative, healthy appearing and no acute distress O rientation/consciousness: patient oriented x3 Limitations: no limitations HEENT: Head: Yes normal to inspection and Yes atraumatic Ears: hearing grossly normal bilaterally General nose exam: Normal external nose present Face and sinus: Yes normal facial exam Eyes: General: appearance normal, both eyes and all related structures EOM: EOMs intact bilaterally Neck: Neck: Yes normal visual inspection and Yes no meningeal signs Resp: Effort & Inspection: normal respiratory effort and no respiratory distress Auscultation: wheezes expiratory wheezes and throughout Cardio: Rate: regular rate Heart sounds: S1 normal heart sound present and S2 normal heart sound present GI: Inspection: Yes normal to inspection Palpation (GI): Soft to palpation, nontender, no guarding and not rigid Skin: Rashes: no rashes Wounds: no wounds Neuro: General: patient oriented x3, tone normal and no meningeal signs C ranial nerves: Yes CN's II-XII intact bilaterally Gait exam (Neuro): Normal gait present Extrem: General: Yes normal to inspection, Yes no pedal edema and Yes no calf tenderness Course Course Course Narrative: -1055--no leukocytosis. Troponin negative -viral testing and rapid strep negative XR chest 2V IMPRESSION: Acute on chronic airspace disease. Neoplasm/malignancy in the right lung cannot be excluded. Recommend further imaging evaluation with CT chest. > will obtain CT for further eval -1242--patient has not yet received CT, pending BMP. Troponin resulted at 10:55 however BMP never ran by lab, causing delay. All labs were ordered at the same time. 1355--CT chest w IV con IMPRESSION: 1. Patchy multifocal bronchopneumonia, most confluent right upper lobe. 2. No effusions. 3. Evidence of prior granulomatous disease. 4. Small type I hiatus hernia. > patient does not meet sepsis criteria. Will treat for multifocal pneumonia. 1405--on re-evaluation patient reports symptomatic improvement. Lungs with good air movement, slight end expiratory residual wheeze noted. Will receive additional DuoNeb prior to discharge. Patient comfortable for discharge home at this time. Admits she has enough refills of albuterol and neb solution Results discussed with patient including worrisome signs and symptoms and strict return precautions, and when to return to the emergency department. They verbalized understanding and feel safe for discharge at this time. Medications Administered Generic Name Dose Route Start Last Admin Trade Name Freq PRN Reason Stop Dose Admin Magnesium Sulfate 2 gm in 50 mls @ 25 mls/hr 12/03/24 12:35 12/03/24 12:54 Magnesium Sulfate/H2o IV 12/03/24 14:34 25 mls/hr ONCE ONE Administration Discontinued Medications Generic Name Dose Route Start Last Admin Trade Name Freq PRN Reason Stop Dose Admin Albuterol Sulfate 2.5 mg/ 0 mg 12/03/24 09:41 12/03/24 09:45 Albuterol/Ipratropium 3 ml INHALE 12/03/24 09:42 1 dose ONCE ONE Administration Iohexol 100 ml 12/03/24 13:23 12/03/24 13:24 Iohexol 350 Mg/Ml 100 Ml Infus..Btl IV 12/03/24 13:24 65 ml ONCE ONE Administration Methylprednisolone Sodium Succinate 60 mg 12/03/24 09:29 12/03/24 09:49 Methylprednisolone Sod Succ 125 Mg/2 Ml Vial IVPUSH 12/03/24 09:30 60 mg ONCE ONE Administration Potassium Chloride 40 meq 12/03/24 10:58 12/03/24 11:18 Potassium Chloride Packet 20 Meq Packet PO 12/03/24 10:59 40 meq ONCE ONE Administration Medical Decision Making Medical Decision Making MDM Narrative: 64-year-old female with a past medical history of anxiety, asthma, presenting to the ED complaining of productive cough, sore throat, SOB, and chest tightness x few days. On exam vital signs stable, NAD, nontoxic appearing, diffuse expiratory wheeze noted throughout. Talking complete sentences. Concern for viral illness vs asthma exacerbation vs pneumonia. Lower suspicion for ACS/PE or DVT Plan: EKG, labs, CXR, viral testing, ED bronch protocol, IV Solu-Medrol Please refer to course for remaining clinical decision making, interpretation of labs/imaging results, and discussions with consultants and/or family members. Differential Diagnosis Differential Diagnoses: The differential diagnosis associated with the presentation includes As above Admission/Observation Consideration of admission/observation: Escalation of care including admission/observation considered Lab Data [facility] Lab Attestation statement: I reviewed the patient's lab results. 12/03/24 09:46 12/03/24 09:46 Labs: Lab Results 12/03/24 12/03/24 12/03/24 Range/Units 07:18 09:45 09:46 WBC 10.8 (4.8-10.8) X10*3/uL RBC 4.67 (4.20-5.50) X10*6/uL Hgb 14.0 (12.0-16.0) g/dl Hct 42.3 (37.0-47.0) % MCV 90.6 (80.0-98.0) fL MCH 30.0 (27.0-33.0) pg MCHC 33.1 (31.0-35.0) g/dl RDW 12.3 (11.0-16.0) % Plt Count 382 (160-400) X10*3/uL MPV 8.9 L (9.4-12.3) fL Immature Gran % (Auto) 0.4 (0.0-0.4) % Neut % (Auto) 62.3 (45-73) % Lymph % (Auto) 26.9 (20-40) % [place] % (Auto) 9.2 (2-11) % Eos % (Auto) 0.6 (0-4) % Baso % (Auto) 0.6 (0-2) % Lymph # (Auto) 2.9 (1.2-4.9) X10*3/uL [place] # (Auto) 1.0 (0.1-1.2) X10*3/uL Eos # (Auto) 0.1 (0.0-0.4) X10*3/uL Baso # (Auto) 0.1 (0.0-0.2) X10*3/uL Abs Immat Gran (auto) 0.04 H (0.00-0.03) X10*3/uL Absolute Neuts (auto) 6.8 (2.0-8.3) x10*3/uL Absolute Nucleated RBC 0.000 (0.0-0.012) X10*3/uL Nucleated RBC % (auto) 0.0 (0.0-0.2) /100WBC Sodium 141 (135-145) mmol/L Potassium 3.6 (3.3-5.1) mmol/L Chloride 107 (96-108) mmol/L Carbon Dioxide 22 (22-29) mmol/L Anion Gap 16 (12-20) BUN 11 (9-16) mg/dL Creatinine 0.55 (0.5-1.4) mg/dL Estim Creat Clear Calc 87.6 Estimated GFR > 60 Random Glucose 104 (60-115) mg/dL Calcium 9.3 (8.4-10.2) mg/dL Troponin I High Sens < 2.7 (<3.5-17.0) ng/L Influenza Type A (PCR) NEGATIVE (Negative) Influenza Type B (PCR) NEGATIVE (Negative) RSV RNA Qual (PCR) NEGATIVE (Negative) SARS-CoV-2 RNA (RT-PCR) NEGATIVE (Negative) S. pyogenes GrpA ALEXANDRA Negative (Negative) Independent Interpretation I performed an independent interpretation of an: EKG (My interpretation EKG normal sinus rhythm rate of 74. [place] interval 166. No significant change when compared to prior. No STEMI) and Plain X-Ray Radiology Impression Discussion of test interpretation with radiology: I have reviewed the radiologist's reading. External Record Review External record reviewed: Inpatient record, Office record, Outpatient record, Prior outpatient labs, Prior outpatient radiology, Primary care record and Outside ED record Tests considered The following testing was considered but not selected: As above Chronic Conditions Patient?s care impacted by: Other Social Determinants Patient?s care significantly limited by Social Determinants of Health including: Other Social Determinant of Health Discharge Plan Discharge Clinical Impression: Bronchopneumonia Patient Disposition: Home, Self-Care Instructions: Pneumonia (ED) Additional Instructions: You have pneumonia. Azithromycin and Augmentin are antibiotics please take as prescribed Please use your nebulizer and inhaler at home regularly In addition take prednisone as prescribed until completion If her symptoms persist or worsen, you have constant worsening chest pain, shortness of breath, fever please return to the emergency department Prescriptions: New benzonatate 100 mg capsule 100 mg PO TID PRN (Reason: cough) Qty: 14 0RF amoxicillin-pot clavulanate 875-125 mg tablet 1 tab PO BID 7 Days Qty: 14 0RF azithromycin 250 mg tablet See Rx Instructions .ROUTE .COMPLEX Qty: 6 0RF Rx Instructions: take 500 mg today (day 1), then 250 mg for 4 days (days 2-5) prednisone 20 mg tablet 40 mg PO DAILY 5 Days Qty: 10 0RF No Action ondansetron 4 mg tablet,disintegrating 4 mg PO BEDTIME Qty: 7 0RF famotidine 20 mg tablet 20 mg PO DAILY Qty: 10 0RF erythromycin 5 mg/gram (0.5 %) ointment 1 appl ophthalmic (eye) BID Qty: 3.5 0RF olopatadine [Pataday Once Daily Relief] 0.2 % drops 1 drp ophthalmic (eye) DAILY PRN (Reason: itching) Qty: 2.5 0RF fluticasone propionate [Flonase Allergy Relief] 50 mcg/actuation spray,suspension 2 spray intranasal DAILY Qty: 16 0RF Rx Instructions: administer into each nostril loratadine [Claritin] 10 mg tablet 10 mg PO DAILY PRN (Reason: allergic symptoms) Qty: 30 0RF prednisone 20 mg tablet 60 mg PO DAILY Qty: 15 0RF albuterol sulfate 0.63 mg/3 mL solution for nebulization 0.63 mg inhalation Q6H PRN (Reason: shortness of breath or wheezing) Qty: 90 0RF albuterol sulfate 2.5 mg /3 mL (0.083 %) solution for nebulization 2.5 mg inhalation Q4-6H PRN (Reason: shortness of breath or wheezing) Qty: 90 0RF benzonatate 200 mg capsule 200 mg PO TID PRN (Reason: cough) Qty: 20 0RF prednisone 20 mg tablet 40 mg PO DAILY Qty: 10 0RF Referrals: Physician,Unknown J [Primary Care Provider] - 1 week Print Language: Georgian
[2024-12-03 10:22] LABS: Troponin-I High Sensitivity < 2.7 ng/L (<3.5-17.0)
[2024-12-03] MEDS: Potassium Chloride Packet 20 MEQ PACKET 40 MEQ PO (11:18)
[2024-12-03 12:46] VITALS: BP 135/76; PULSE 71; RESP 18; TEMP 36.8; O2SAT 95
[2024-12-03] MEDS: Magnesium Sulfate/H2O 2 GM/50 ML PIGGYBACK IV (12:54)
[2024-12-03 12:57] LABS: Anion Gap 16 (12-20); Blood Urea Nitrogen 11 mg/dL (9-16); Calcium 9.3 mg/dL (8.4-10.2); Carbon Dioxide 22 mmol/L (22-29); Chloride 107 mmol/L (96-108); Creatinine Clr Calc Pharmacy 87.6; Estimated Glomerular Filt Rate > 60; Glucose Random 104 mg/dL (60-115); Potassium 3.6 mmol/L (3.3-5.1); Sodium 141 mmol/L (135-145)
[2024-12-03] MEDS: iohexoL 350 MG/ML 100 ML INFUS..BTL IV (13:24)
[2024-12-03] MEDS: Albuterol/Iprat 2.5/0.5MG 3 ML AMPUL.NEB INHALE (14:09)
[2024-12-03 14:10] VITALS: PULSE 71; RESP 18; O2SAT 97
[2024-12-03 14:41] VITALS: BP 122/86; PULSE 82; RESP 14; TEMP 36.4; O2SAT 95
== END 2024-12-03 14:42 | disposition home or self-care (01) ==
PROVIDERS: Physician Assistant; Emergency Provider Emergency Medicine Emergency Medical Services
DX: J18.0 Bronchopneumonia, unspecified organism (principal); R05.9 Cough, unspecified; R06.02 Shortness of breath; R07.89 Other chest pain; Z03.818 Encounter for observation for suspected exposure to other biological agents ruled out; Z79.899 Other long term (current) drug therapy
CPT/HCPCS: 0241U; 36415; 71046; 71260; 80048; 84484; 85025; 87651; 93005; 94640; 96374; 96375; 99284; J2919; J3475; Q9967

== ENCOUNTER → 2024-12-03 07:24 | Outpatient (BNV) | payer OTHER, SELFPAY | PROVIDERS: Visit Provider Radiology Diagnostic Radiology | DX: J18.0 Bronchopneumonia, unspecified organism (principal); K44.9 Diaphragmatic hernia without obstruction or gangrene; J96.20 Acute and chronic respiratory failure, unspecified whether with hypoxia or hypercapnia; R91.8 Other nonspecific abnormal finding of lung field | CPT/HCPCS: 71046; 71260 ==

== ENCOUNTER → 2024-12-03 09:29 | Outpatient (BNV) | payer OTHER, SELFPAY | PROVIDERS: Emergency Provider Emergency Medicine Emergency Medical Services; Visit Provider Internal Medicine Cardiovascular Disease | DX: R07.9 Chest pain, unspecified (principal); R05.9 Cough, unspecified | CPT/HCPCS: 93010 ==

== ENCOUNTER 2025-02-13 08:11 | Emergency (ER) | payer OTHER, SELFPAY ==
--- NOTE | ~2025-02-13 | XR_ITS ---
CLINICAL HISTORY: pain, injury 3 view right foot Comparison: None provided Findings: Large enthesophyte at the insertion of the Achilles tendon on the posterior calcaneus. Mild degenerative changes in the foot. No fracture deformity. No ankle effusion. No radiopaque foreign body. IMPRESSION: 1. No acute findings. This document has been electronically signed by: Hubert Hancock MD on 02/13/2025 11:19:45
--- NOTE | 2025-02-13 08:16 | ED_ITS ---
HPI - General Adult General Chief complaint: Extremity Injury, Lower Stated complaint: leg inj Time Seen by Provider: 02/13/25 08:16 Source: patient Mode of arrival: ambulatory Limitations: no limitations History of Present Illness ED Provider: Rhonda Pichardo PA-C HPI narrative: Patient is a 64 year old assigned female at with a history of anxiety and asthma presenting to the emergency department today with right foot and 4th toe pain. Patient states that 2 days ago she opened a cabinet and a can fell onto her foot / toe and she continues to have pain. Patient denies any dizziness, lightheadedness, abdominal pain, nausea, vomiting, fever, chills, blurry vision, double vision, loss of vision, chest pain, difficulty breathing, shortness of breath, back pain, night sweats, pain with urination, increased urinary frequency, increased urinary urgency, blood in her urine or stool, syncope or a near syncopal episode, bowel incontinence, bladder incontinence, or any other complaints at this time. Onset (ago): day(s) (2) Location: right (foot + 4th toe) Relieving factors: immobilization Exacerbating factors: movement Associated symptoms: denies other symptoms Treatments prior to arrival: other (tylenol) Related Data Previous Rx's ?Medication ?Instructions ?Recorded famotidine 20 mg tablet 20 mg PO DAILY #10 tabs 05/18 05/08 ondansetron 4 mg disintegrating 4 mg PO BEDTIME #7 tab s 06/05/21 tablet erythromycin 5 mg/gram (0.5 %) eye 1 appl ophthalmic ( eye) BID #3.5 12/14/22 ointment grams fluticasone propionate 50 2 spray intranasal DAILY #16 grams 05/24/23 mcg/actuation nasal spray,suspension (Flonase Allergy Relief) loratadine 10 mg tablet (Claritin) 10 mg PO DAILY PRN allergic 05/24/23 symptoms #30 tabs olopatadine 0.2 % eye drops 1 drp ophthalmic (eye) RACHEL LY PRN 05/24/23 (Pataday Once Daily Relief) itching #2.5 mL albuterol sulfate 0.63 mg/3 mL 0.63 mg (3 mL) inhalati on Q6H PRN 08/27/23 solution for nebulization shortness of breath or wheez ing #90 mL prednisone 20 mg tablet 60 mg (3 x 20 mg) PO DAILY # 15 tabs 08/27/23 albuterol sulfate 2.5 mg/3 mL 2.5 mg (3 mL) inhalation Q4-6H PRN 08/29/23 (0.083 %) solution for nebulization shortness of breat h or wheezing #90 mL benzonatate 200 mg capsule 200 mg PO TID PRN cough #20 caps 07/07/24 prednisone 20 mg tablet 40 mg (2 x 20 mg) PO DAILY # 10 tabs 07/07/24 amoxicillin 875 mg-potassium 1 tab PO BID 7 days #14 t abs 12/03/24 clavulanate 125 mg tablet azithromycin 250 mg tablet See Rx Instructions PO .COM PLEX #6 12/03/24 tabs benzonatate 100 mg capsule 100 mg PO TID PRN cough #14 caps 12/03/24 prednisone 20 mg tablet 40 mg (2 x 20 mg) PO DAILY 5 days 12/03/24 #10 tabs Allergies Allergy/AdvReac Type Severity Reaction Status Date / Time No Known Allergies Allergy Verified 02/13/25 08:24 Review of Systems Constitutional: Constitutional: Reports no additional constitutional complaints, Denies chills, Denies fever(s) and Denies night sweats Eyes: Eyes: Reports no additional eye complaints, Denies blurry vision, Denies change in vision, Denies diplopia, Denies eye discharge, Denies loss of vision a nd Denies eye pain ENT: Denies dizziness Cardiovascular: Cardiovascular: Reports no additional cardiovascular compla ints, Denies chest pain, Denies lightheadedness, Denies Loss of Consciousness and Denies dyspnea Respiratory: Respiratory: Reports no additional respiratory complaints and Denies dyspnea Gastrointestinal: Gastrointestinal: Reports no additional gastrointestinal complaints, Denies abdominal pain, Denies melena, Denies hematochezia, Denies change in bowel habits and Denies change in stool character Genitourinary: Genitourinary: Denies hematuria, Denies urinary frequency, Denies dysuria, Denies urinary incontinence, Denies urinary hesitancy and Denies urinary urgency Musculoskeletal: Musculoskeletal: Reports no additional musculoskeletal complaints, Denies numbness and Denies tingling Comments: right foot pain / right 4th toe pain Neurologic: Denies dizziness, Denies loss of vision, Denies numbness and Denies tingling Psychiatric: Psychiatric: Reports no additional psychiatric complaints Endocrine: Endocrine: Reports no additional endocrine complaints Hematologic/Lymphatic: Hematologic/Lymphatic: Reports no additional hematologic/lymphatic complaints Allergic/Immunologic: Allergic/Immunologic: Reports no additional allergic/immunologic complaints [facility] Past Medical History Attestation statement: The following information was validated with the patient. Source: old records reviewed and nursing notes reviewed Medical History Anxiety Asthma Social History Social History Alcohol intake: never Patient Tobacco Use Status: Never used Tobacco Smoked in Last 30 Days: No Use of substances other than those prescribed or required for medical reasons: No Advance Directives: No Advance Directives Information Provided: Yes Physical Exam ED Vital Signs: Vital Signs - 24 hr 02/13/25 08:20 02/13/25 10:30 Temperature 98.6 F 98.6 F Pulse Rate 80 80 Respiratory Rate 16 16 Blood Pressure 149/78 H 149/78 H Pulse Oximetry 96 96 Oxygen Delivery Method Room Air Room Air BMI result Body Mass Index 28.0 Const General: cooperative, no acute distress, alert and awake Nutritional Appearance: well nourished Orientation/consciousness: patient oriented x3 HENMT Head: Yes normal to inspection and Yes atraumatic Ears: hearing grossly normal bilaterally and external ears normal General nose exam: Normal external nose present, no nasal discharge noted and no epistaxis Face and sinus: Yes normal facial exam, No abrasion and No laceration Mouth: Normal oral and palatal mucosa present, no drooling and no muffled voice Eyes General: appearance normal, both eyes and all related structures Periorbital: periorbital findings normal Eyelids: Yes eyelids normal Conjunctivae: conjunctivae normal Pupils: Equal, round and reactive pupils present EOM: EOMs intact bilaterally Neck Neck: Yes normal visual inspection, Yes full ROM and Yes no lymphadenopathy Resp Effort & Inspection: normal respiratory effort and able to speak in complete sentences Neuro General: patient oriented x3, moves all extremities and CN's II-XI intact bila terally Cranial nerves: Yes Equal, round and reactive pupils present Cognition (Neuro): normal cognition Extrem Other: bruising present to the dorsal 4th toe General: Yes full ROM and Yes capillary refill normal Psych Appearance: grossly normal Mental Status: mental status grossly normal Affect: normal affect Attitude: cooperative Thought process: Normal thought process present Thought content: Normal thought content present Insight: Good insight present (Psych) Procedures Orthopedic Splinting/Casting Injury #1: Side: right Lower Extremity Injury Location: toe Lower Extremity Immobilizer: post-op shoe Medical Decision Making Medical Decision Making [facility] Narrative: Patient is a 64 year old assigned female at with a history of anxiety and asthma presenting to the emergency department today with right foot and 4th toe pain. Patient's physical exam was as noted in the physical exam portion of this note. Patient's right foot x-ray was read by the radiologist as no acute process however, when I reviewed the images, I appreciated what appeared to be a right 4th distal toe fracture. I explained my physical exam findings as well as all test results to the patient. I answered all questions asked by the patient. Patient's right foot was placed in a post-op shoe. Patient's PMS was intact prior to and after post-op shoe placement. I stressed the importance of the patient taking her medication as directed (either prescribed or as the over the counter packaging recommends). I stressed the importance of the patient following up with her primary care provider and the orthopedic team. I stressed the importance of the patient returning to the emergency department immediately if her symptoms were to worsen or if she were to develop any dizziness, shortness of breath, difficulty breathing, chest pain, blurry vision, loss of vision, nausea, vomiting, abdominal pain, fever, chills, back pain, or any other complaints. Patient verbalized agreement and understanding with this treatment plan and discharge. Differential Diagnosis Differential Diagnoses: The differential diagnosis associated with the presentation includes Toe fracture Toe contusion Toe pain Admission/Observation Consideration of admission/observation: Escalation of care including admission/observation considered Patient would have been admitted to the hospital had her work up had any findings where hospital admission was appropriate and her clinical presentation warranted hospital admission. Independent Interpretation I performed an independent interpretation of an: Plain X-Ray Interpretation: My interpretation of this imaging is in the MDM Rationale portion of this note - below is the radiologist's impression of this imaging study. CLINICAL HISTORY: pain, injury 3 view right foot Comparison: None provided Findings: Large enthesophyte at the insertion of the Achilles tendon on the posterior calcaneus. Mild degenerative changes in the foot. No fracture deformity. No ankle effusion. No radiopaque foreign body. IMPRESSION: 1. No acute findings. This document has been electronically signed by: Hubert Hancock MD on 02/13/2025 11:19:45 Dictated By: Hubert Hancock MD Signed By: Electronically signed by Hubert Hancock MD 02/13/25 3009 Radiology Impression Discussion of test interpretation with radiology: I have reviewed the radiologist's reading. Discharge Plan Discharge Clinical Impression: Fracture of toe Patient Disposition: Home, Self-Care Instructions: Toe Fracture (ED), Post Surgical Shoe (ED) Additional Instructions: Wear your post-op shoe as directed. Follow up with the orthopedic team. Follow up with your primary care provider. Return to the emergency department immediately if your symptoms worsen or if you develop any numbness, tingling, dizziness, shortness of breath, difficulty breathing, chest pain, blurry vision, loss of vision, nausea, vomiting, abdominal pain, fever, chills, back pain, or any other complaints. Please see the information below about our Patient Portal. If you are not yet enrolled in the [facility] Patient Portal, you will receive an enrollment email invitation following your visit to any [facility] setting. You may also self-enroll in the Patient Portal by visiting our website: [email or web address] The following information is required to access the Patient Portal: - Your [facility] Medical Record Number - Your personal home email address (must match what is in your electronic medical record, Registration staff can assist with this) - Name - Date of Capabilities of the Patient Portal: - Message some providers - View upcoming appointments - Access your health summary, medical history, and visit history - View current conditions and allergies - View procedure and lab results - View your medications, including guidelines, side effects, and precautions - Complete pre-appointment questionnaires requested by your provider - Ready summary reports of your office visits and procedures To access the Patient Portal Mobile [employer], follow these directions: - Search [facility] [facility] in the [employer] Store or [employer] Store - Download the [employer] - Search for [facility] - Enter your login/password Prescriptions: No Action ondansetron 4 mg tablet,disintegrating 4 mg PO BEDTIME Qty: 7 0RF famotidine 20 mg tablet 20 mg PO DAILY Qty: 10 0RF erythromycin 5 mg/gram (0.5 %) ointment 1 appl ophthalmic (eye) BID Qty: 3.5 0RF olopatadine [Pataday Once Daily Relief] 0.2 % drops 1 drp ophthalmic (eye) DAILY PRN (Reason: itching) Qty: 2.5 0RF fluticasone propionate [Flonase Allergy Relief] 50 mcg/actuation spray,suspension 2 spray intranasal DAILY Qty: 16 0RF Rx Instructions: administer into each nostril loratadine [Claritin] 10 mg tablet 10 mg PO DAILY PRN (Reason: allergic symptoms) Qty: 30 0RF prednisone 20 mg tablet 60 mg PO DAILY Qty: 15 0RF albuterol sulfate 0.63 mg/3 mL solution for nebulization 0.63 mg inhalation Q6H PRN (Reason: shortness of breath or wheezing) Qty: 90 0RF albuterol sulfate 2.5 mg /3 mL (0.083 %) solution for nebulization 2.5 mg inhalation Q4-6H PRN (Reason: shortness of breath or wheezing) Qty: 90 0RF benzonatate 200 mg capsule 200 mg PO TID PRN (Reason: cough) Qty: 20 0RF prednisone 20 mg tablet 40 mg PO DAILY Qty: 10 0RF benzonatate 100 mg capsule 100 mg PO TID PRN (Reason: cough) Qty: 14 0RF amoxicillin-pot clavulanate 875-125 mg tablet 1 tab PO BID 7 Days Qty: 14 0RF azithromycin 250 mg tablet See Rx Instructions .ROUTE .COMPLEX Qty: 6 0RF Rx Instructions: take 500 mg today (day 1), then 250 mg for 4 days (days 2-5) prednisone 20 mg tablet 40 mg PO DAILY 5 Days Qty: 10 0RF Referrals: [facility] Orthopedic Surgeons [Provider Group] Referral Note: Call to establish and follow up with the orthopedic team. Interventions: ED Discharge Assessment Last Done: 02/13/25 10:30 Discharge Date/Time: 02/13/25 10:32 Print Language: Belizean
[2025-02-13 08:20] VITALS: BP 149/78; PULSE 80; RESP 16; TEMP 37; O2SAT 96; BMI 28.0
[2025-02-13 10:30] VITALS: BP 149/78; PULSE 80; RESP 16; TEMP 37; O2SAT 96
== END 2025-02-13 10:32 | disposition home or self-care (01) ==
PROVIDERS: Emergency Provider Emergency Medicine; PCP Internal Medicine
DX: S92.501A Displaced unspecified fracture of right lesser toe(s), initial encounter for closed fracture (principal); M79.671 Pain in right foot; X58.XXXA Exposure to other specified factors, initial encounter; Y93.9 Activity, unspecified; Y92.9 Unspecified place or not applicable; Y99.8 Other external cause status
CPT/HCPCS: 73630; 99283

== ENCOUNTER → 2025-02-13 08:22 | Outpatient (BNV) | payer OTHER, SELFPAY | PROVIDERS: Emergency Provider Emergency Medicine; PCP Internal Medicine; Visit Provider Radiology Diagnostic Radiology | DX: M77.51 Other enthesopathy of right foot and ankle (principal) | CPT/HCPCS: 73630 ==

== ENCOUNTER 2025-04-05 18:32 | Emergency (ER) | payer OTHER, SELFPAY ==
--- NOTE | ~2025-04-05 | XR_ITS ---
CLINICAL HISTORY: cough 2 view chest x-ray Comparison: CR/PA/SR - XR CHEST 2V - 12/03/2024 07:28 AM EDT Findings: No consolidation or effusion. Heart size is normal. No acute fracture. IMPRESSION: 1. No acute findings. This document has been electronically signed by: Hubert Hancock MD on 04/05/2025 20:52:40
[2025-04-05 18:46] VITALS: BP 160/77; PULSE 96; RESP 18; TEMP 38.1; O2SAT 97; BMI 26.2
[2025-04-05 19:11] LABS: IDNOW Serial# 55D5AD1C; Strep A Nucleic Acid Negative (Negative)
[2025-04-05 19:41] LABS: Resp Syncy Virus RNA Qual PCR NEGATIVE (Negative); SARS COV2 PCR INHOUSE POSITIVE (Negative)
--- NOTE | 2025-04-05 23:16 | ED_ITS ---
HPI - General Adult General Chief complaint: Upper Respiratory Symptoms Stated complaint: Astma-SOB Time Seen by Provider: 04/05/25 22:53 Source: patient Limitations: no limitations History of Present Illness ED Provider: Donna Chavira PA-C HPI narrative: 64-year-old female with a history of asthma presents with cough and cold symptoms x1 day. Associated generalized headache, sore throat, generalized malaise, myalgias and dry repetitive cough. No known sick contacts with similar symptoms. Denies known fever. Related Data Previous Rx's ?Medication ?Instructions ?Recorded famotidine 20 mg tablet 20 mg PO DAILY #10 tabs 05/18 05/08 ondansetron 4 mg disintegrating 4 mg PO BEDTIME #7 tab s 06/05/21 tablet erythromycin 5 mg/gram (0.5 %) eye 1 appl ophthalmic ( eye) BID #3.5 12/14/22 ointment grams fluticasone propionate 50 2 spray intranasal DAILY #16 grams 05/24/23 mcg/actuation nasal spray,suspension (Flonase Allergy Relief) loratadine 10 mg tablet (Claritin) 10 mg PO DAILY PRN allergic 05/24/23 symptoms #30 tabs olopatadine 0.2 % eye drops 1 drp ophthalmic (eye) RACHEL LY PRN 05/24/23 (Pataday Once Daily Relief) itching #2.5 mL albuterol sulfate 0.63 mg/3 mL 0.63 mg (3 mL) inhalati on Q6H PRN 08/27/23 solution for nebulization shortness of breath or wheez ing #90 mL prednisone 20 mg tablet 60 mg (3 x 20 mg) PO DAILY # 15 tabs 08/27/23 albuterol sulfate 2.5 mg/3 mL 2.5 mg (3 mL) inhalation Q4-6H PRN 08/29/23 (0.083 %) solution for nebulization shortness of breat h or wheezing #90 mL benzonatate 200 mg capsule 200 mg PO TID PRN cough #20 caps 07/07/24 prednisone 20 mg tablet 40 mg (2 x 20 mg) PO DAILY # 10 tabs 07/07/24 amoxicillin 875 mg-potassium 1 tab PO BID 7 days #14 t abs 12/03/24 clavulanate 125 mg tablet azithromycin 250 mg tablet See Rx Instructions PO .COM PLEX #6 12/03/24 tabs benzonatate 100 mg capsule 100 mg PO TID PRN cough #14 caps 12/03/24 prednisone 20 mg tablet 40 mg (2 x 20 mg) PO DAILY 5 days 12/03/24 #10 tabs Allergies Allergy/AdvReac Type Severity Reaction Status Date / Time No Known Allergies Allergy Verified 04/05/25 18:47 Review of Systems Review of Systems: Yes all other systems are reviewed and are negative Constitutional: Constitutional: Reports fatigue, Denies fever(s), Reports headache(s) and Reports malaise ENT: Reports headache(s) and Reports sore throat Cardiovascular: Cardiovascular: Denies chest pain and Denies dyspnea Respiratory: Respiratory: Denies chest congestion, Reports cough, Denies dyspnea and Reports wheezing Gastrointestinal: Gastrointestinal: Denies abdominal pain and Denies vomiting Musculoskeletal: Musculoskeletal: Reports myalgias Neurologic: Reports headache(s) Endocrine: Endocrine: Reports fatigue Allergic/Immunologic: Allergic/Immunologic: Reports wheezing PMFSH Past Medical History Attestation statement: The following information was validated with the patient. Medical History Anxiety Asthma Social History Social History Alcohol intake: never Patient Tobacco Use Status: Never used Tobacco Advance Directives: No Advance Directives Information Provided: No Do you have a plan to hurt others: No Plan Physical Exam ED Vital Signs: Vital Signs - 24 hr 04/05/25 18:46 Temperature 100.5 F H Pulse Rate 96 Respiratory Rate 18 Blood Pressure 160/77 H Pulse Oximetry 97 Oxygen Delivery Method Room Air BMI result Body Mass Index 26.2 Const Other: Alert Orientation/consciousness: patient oriented x3 Resp Other: Nonlabored respirations, no wheezing, dry cough at times Cardio Other: Normal peripheral perfusion Skin Other: Warm dry no rash Neuro General: patient oriented x3, gait normal, no focal motor deficits and CN's II- XI intact bilaterally Psych Other: Cooperative Medications Administered Discontinued Medications Generic Name Dose Route Start Last Admin Trade Name Freq PRN Reason Stop Dose Admin Acetaminophen 650 mg 04/05/25 18:51 04/05/25 18:54 Acetaminophen 325 Mg Tablet PO 04/05/25 18:52 650 mg ONCE ONE Administration Medical Decision Making Medical Decision Making MDM Narrative: 64-year-old female with a history of asthma presents with cough and cold symptoms x1 day. Associated generalized headache, sore throat, generalized lesa ise, myalgias and dry repetitive cough. No known sick contacts with similar symptoms. Denies known fever. Problem: Asthma History: Per patient I have considered the following differential diagnoses: Viral syndrome, pneumonia, bronchitis, asthma exacerbation, seasonal allergies Plan: Viral panel and chest x-ray obtained from triage, the patient is positive for COVID, the chest x-ray is clear. She is not having an active asthma exacerbation. Sending with home care instructions. I have independently reviewed the following tests: Labs: Positive for COVID Chest x-ray:Findings: No consolidation or effusion. Heart size is normal. No acute fracture. IMPRESSION: 1. No acute findings. Lab Data Labs: Lab Results 04/05/25 Range/Units 18:59 Influenza Type A (PCR) NEGATIVE (Negative) Influenza Type B (PCR) NEGATIVE (Negative) RSV RNA Qual (PCR) NEGATIVE (Negative) SARS-CoV-2 RNA (RT-PCR) POSITIVE A (Negative) S. pyogenes GrpA ALEXANDRA Negative (Negative) Discharge Plan Discharge Clinical Impression: COVID-19 Patient Disposition: Home, Self-Care Instructions: COVID-19 (Coronavirus Disease 2019) (ED), How to Recover from COVID-19 at Home (ED), Social Distancing Guidelines for COVID-19 (ED) Additional Instructions: You tested positive for COVID. See home care instructions. See isolation parameters. The chest x-ray was clear. Follow up with primary care as needed. Prescriptions: No Action ondansetron 4 mg tablet,disintegrating 4 mg PO BEDTIME Qty: 7 0RF famotidine 20 mg tablet 20 mg PO DAILY Qty: 10 0RF erythromycin 5 mg/gram (0.5 %) ointment 1 appl ophthalmic (eye) BID Qty: 3.5 0RF olopatadine [Pataday Once Daily Relief] 0.2 % drops 1 drp ophthalmic (eye) DAILY PRN (Reason: itching) Qty: 2.5 0RF fluticasone propionate [Flonase Allergy Relief] 50 mcg/actuation spray,suspension 2 spray intranasal DAILY Qty: 16 0RF Rx Instructions: administer into each nostril loratadine [Claritin] 10 mg tablet 10 mg PO DAILY PRN (Reason: allergic symptoms) Qty: 30 0RF prednisone 20 mg tablet 60 mg PO DAILY Qty: 15 0RF albuterol sulfate 0.63 mg/3 mL solution for nebulization 0.63 mg inhalation Q6H PRN (Reason: shortness of breath or wheezing) Qty: 90 0RF albuterol sulfate 2.5 mg /3 mL (0.083 %) solution for nebulization 2.5 mg inhalation Q4-6H PRN (Reason: shortness of breath or wheezing) Qty: 90 0RF benzonatate 200 mg capsule 200 mg PO TID PRN (Reason: cough) Qty: 20 0RF prednisone 20 mg tablet 40 mg PO DAILY Qty: 10 0RF benzonatate 100 mg capsule 100 mg PO TID PRN (Reason: cough) Qty: 14 0RF amoxicillin-pot clavulanate 875-125 mg tablet 1 tab PO BID 7 Days Qty: 14 0RF azithromycin 250 mg tablet See Rx Instructions .ROUTE .COMPLEX Qty: 6 0RF Rx Instructions: take 500 mg today (day 1), then 250 mg for 4 days (days 2-5) prednisone 20 mg tablet 40 mg PO DAILY 5 Days Qty: 10 0RF Print Language: Mohawk
== END 2025-04-06 00:58 | disposition home or self-care (01) ==
PROVIDERS: Emergency Provider Emergency Medicine; PCP Internal Medicine
DX: U07.1 COVID-19 (principal); R05.9 Cough, unspecified; R51.9 Headache, unspecified; J02.9 Acute pharyngitis, unspecified; R53.81 Other malaise
CPT/HCPCS: 71046; 87637; 87651; 99282; 99283

== ENCOUNTER → 2025-04-05 18:50 | Outpatient (BNV) | payer OTHER, SELFPAY | PROVIDERS: PCP Internal Medicine; Visit Provider Radiology Diagnostic Radiology | DX: R05.9 Cough, unspecified (principal) | CPT/HCPCS: 71046 ==